=== PATIENT | female | born 1945 | race Caucasian/White ===

== ENCOUNTER 2018-04-28 05:02 | Observation (INO) | payer MEDICARE, SELFPAY ==
[2018-04-28] VITALS (8 sets, daily range): BP systolic 139–170; BP diastolic 74–92; PULSE 80–97; RESP 14–18; TEMP 36.6–36.8; O2SAT 96–100; BMI 25.5; BMI 25.1; BMI 25.2
--- NOTE | 2018-04-28 05:08 | EKG12_ITS ---
Test Reason : CP Blood Pressure : / mmHG Vent. Rate : 095 BPM Atrial Rate : 095 BPM P-R Int : 144 ms QRS Dur : 068 ms QT Int : 338 ms P-R-T Axes : 070 010 052 degrees QTc Int : 424 ms Normal sinus rhythm Normal ECG Confirmed by MALLORY HUGHES, RAKESH ([id number]), production editor LIANA BULL ([id number]) on 05/02/2018 3:16:24 PM Referred By: [place] Confirmed By:RAKESH TEJADA MD
--- NOTE | 2018-04-28 05:08 | RAD_ITS ---
STUDY: X-RAY CHEST REASON FOR EXAM: Female, 73 years old. Hypertension and tightness in chest TECHNIQUE: Single AP portable view of the chest. COMPARISON: None. FINDINGS: There are superimposed monitor leads. There is a moderate-sized hiatal hernia. There is hyperinflation of the lungs consistent with chronic obstructive lung disease (COPD). There is no demonstrated pleural abnormality. Normal size heart. Normal mediastinum and oswald. Normal visualized pulmonary arteries. There is atherosclerotic calcification of the aortic arch with tortuosity. Normal visualized thoracic spine. Normal visualized ribs, clavicles, and shoulders. There is no demonstrated abnormality of the visualized soft tissue structures of the upper abdomen. RAD/Chest 1 View (Portable) IMPRESSION: COPD. No pulmonary edema, congestive heart failure or confluent pneumonia. Other nonacute findings as outlined above. Electronically Signed: Meena Alejandro MD at 5:46 EDT , Service support ,
[2018-04-28] MEDS: Aspirin 81 MG TAB.CHEW 324 MG PO (05:14)
[2018-04-28] MEDS: 0.9% Normal Saline 1,000 ML 150 ML IV (05:14)
[2018-04-28 05:20] LABS: Absolute Lymphocyte Count 1.33 X10^3/ul (0.83-4.51); Absolute Neutrophil Count 5.2 X10^3/uL (2.0-7.7); Basophil# 0.04 X10^3/uL; Basophil% 0.6 % (0-1); Eosinophil# 0.04 X10^3/uL; Eosinophils% 0.6 % (0-5); Hematocrit 38.1 % (37-47); Hemoglobin 13.2 g/dl (12.0-15.0); Lymphocyte # 1.33 X10^3/ul (4.0); Lymphocyte % 19.2 % (19-41); Mean Corp Hgb Conc 34.6 g/gl (32-36); Mean Corpuscular Hgb 30.1 pg (27.0-32.0); Mean Platelet Vol. 8.6 fl (6.2-12.0); Monocyte# 0.34 X10^3/uL; Monocyte% 4.9 % (0-10); Neutrophil # 5.16 X10^3/uL (2.7-7.7); Neutrophil % 74.6 % (47-70); Platelet Count 348 K/mm3 (150-450); RBC Distribution Width CV 12.8 % (11.6-14.6); RBC Distribution Width SD 39.9 fl (35.1-43.9); Red Blood Count 4.38 M/mm3 (4.2-5.4); White Blood Count 6.9 K/mm3 (4.4-11.0)
--- NOTE | 2018-04-28 05:30 | ED.VISSUMM ---
- ER Visit Summary Date of Service: 04/28/18 Chief Complaint: Chest pain History of Present Illness: The patient is a [address] Eros Horta III. She reports that she was awakened from sleep at 1215 by a substernal tightness and heaviness with radiation to the right side of her jaw. She reports is 2 out of 10 severity currently and at worst. Is worsened by nothing including exertion, movement, or breathing. It is also relieved by nothing including antacids. She has been nauseated with it. No vomiting, diaphoresis, or shortness of breath. Patient has a history of high blood pressure, high cholesterol, and family history of coronary artery disease. She has never had a stress test or heart catheterization. Physical Examination: Vitals: Stable. Afebrile. General: Well-nourished and well-developed. Head: Normocephalic atraumatic. Neck: Supple, no lymphadenopathy. No JVD. Nontender. Cardiovascular: Regular rate and rhythm. No murmurs. Respiratory: No respiratory distress. Clear to auscultation bilaterally. Abdominal: Soft, nontender, nondistended, normal bowel sounds. No guarding, rebound, or peritoneal signs. Back: Nontender. Extremities: Nontender, no edema. Skin: Normal color, no rash. Neurologic: Alert and oriented ?3. Cranial nerves II through XII are intact. Normal strength and sensation. Psych: Normal affect. Test Results: EKG is sinus at [address] changes. Chest x-ray shows chronic changes. CBC is marked for segment neutrophils 75. Chem-7 is more for sodium 132, creatinine 1.22, glucose 133. Troponin is negative. Emergency Department Course and Treatment: Patient was treated with aspirin and sublingual nitroglycerin. There was no change in her pain with the nitroglycerin. Treatment Plan: Patient will be admitted for further evaluation and treatment. She will be discussed with the hospitalist. Disposition: Admitted in stable condition. Impression: 1. Chest pain. 2. VERNA score of 3. 3. Renal insufficiency. This note was generated with [employer] software. It may contain incorrect words, spelling, and punctuation that were not noted in review of the chart prior to signing ED Disposition - Plan for ED Patient: Chief Complaint: Chest Pain Referrals: Eros Horta III, MD [Primary Care Provider] -
[2018-04-28 05:36] LABS: POSITIVE COUNT NO; POSITIVE DIFFERENTIAL NO; POSITIVE MORPHOLOGY NO
[2018-04-28 05:37] LABS: Anion Gap 8 (5-15); BUN 18 mg/dL (7-18); BUN/Creat Ratio 14.8 RATIO (10-20); Calcium,Total 9.7 mg/dL (8.5-10.1); Chloride 99 mmol/L (98-107); Creatinine, Serum 1.22 mg/dL (0.55-1.02); EST Glomerular Filtration Rate 46 mL/min (>60); Est Glom Filt Rate - Afr Amer 56 mL/min (>60); Estimated Creatinine Clearance 32.48 ml/min; Glucose 133 mg/dL (74-106); Potassium 3.9 mmol/L (3.5-5.1); Sodium Level 132 mmol/L (136-145)
--- NOTE | 2018-04-28 05:38 | NURSING ---
pt does not know here fosamax dosage
--- NOTE | 2018-04-28 06:51 | EKG12_ITS ---
Test Reason : Blood Pressure : / mmHG Vent. Rate : 085 BPM Atrial Rate : 085 BPM P-R Int : 150 ms QRS Dur : 066 ms QT Int : 366 ms P-R-T Axes : 067 016 050 degrees QTc Int : 435 ms Normal sinus rhythm Normal ECG When compared with ECG of 28-APR-2018 05:10, MANUAL COMPARISON REQUIRED, DATA IS UNCONFIRMED Confirmed by MALLORY HUHGES, RAKESH ([id number]), editor continuity and script LIANA BULL ([id number]) on 05/02/2018 3:57:32 PM Referred By: BLANK Confirmed By:RAKESH TEJADA MD
--- NOTE | 2018-04-28 07:01 | HP.PCM_ITS ---
Problem List (1) Chest pain at rest Status: Acute (2) HTN (hypertension) Status: Chronic (3) Hyperlipemia Status: Acute History of Present Illness Date of Admission: 04/28/18 Chief Complaint: chest pain The patient is a 73 year old F with a significant history of hypertension, hyperlipidemia, IBS who presents with chest pain that woke up from her sleep. The night before admission patient slept at about 11:30 PM. At about 12:15 AM she woke up with pain in the right side of her head; I said of the neck and the right side of her chest. She described the pain as heaviness and tightness. Her pain severity is 2 out of 10. Patient came to the emergency department because she was fearful that she was having a brain aneurysm. Associated with symptoms is nausea and hot feelings around her cheeks. There is no ameliorating or aggravating factors of her pain. She denies diaphoresis. After she woke up from her sleep she checked her blood pressure and her blood pressure was severely elevated at 185/88. Past Medical History Past Medical History (Chronic Problems): Chronic Problems HTN (hypertension) (Chronic) Allergies erythromycin base [From Staticin] Allergy (Verified 04/28/18 05:08) Other ethyl alcohol [From Staticin] Allergy (Verified 04/28/18 05:08) Other Home Medications: Ambulatory Orders Medication Instructions Recorded Alendronate Sodium [Fosamax] mg PO DAILY 04/28/18 Amlodipine/Benazepril [Lotrel 5-20 1 capsule PO DAILY 04/28/18 MG Capsule] Aspirin E.C. [Ecotrin] 81 mg PO DAILY@0800 04/28/18 Biotin 7,500 mcg PO DAILY 04/28/18 Calcium Carbonate [Calcium] 600 mg PO BID 04/28/18 Cholecalciferol (VIT D3) [Vitamin 1,000 unit PO DAILY 04/28/18 D] Cinnamon Bark [Cinnamon] 1,000 mg PO BID 04/28/18 Folic Acid 0.4 mg PO DAILY@0800 04/28/18 Ubidecarenone [Co Q-10] 200 mg PO DAILY 04/28/18 Surgical History: - - parathyroidectomy Psychiatric History: No pertinent psych hx Smoking Status: Never smoker Alcohol: None - *Family History Maternal History Items: Heart Disease Paternal History Items: Heart Disease Review of Systems Constitutional: Denies: Chills, Fever, Weight Change HEENT: Reports: Head Aches. Denies: Sinus Congestion, Sinus Drainage Cardiovascular: Reports: Chest Pain. Denies: Palpitations Respiratory: Denies: Cough, Shortness of breath at rest, Sputum production Gastrointestinal: Reports: Nausea. Denies: Abdominal Pain, Vomiting Genitourinary: Denies: Dysuria Musculoskeletal: Denies: Joint Pain, Joint Tenderness Skin: Denies: Rash, Wounds Neurological: Denies: Numbness, Tingling, Focal weakness Psychiatric: Denies: Anxiety, Depression, Homicidal Ideations, Suicidal Ideations Hematologic/ Lymphatic: Denies: Easy Bruising, Easy Bleeding VTE Information - Inpt Only VTE Present on Admission: No VTE Mechan Device Prophylaxis: None VTE Pharm Prophylaxis ordered?: Yes Patient Problems: Active and Suspected Problems Chest pain at rest (Acute) Hyperlipemia (Acute) - Physical Exam General: Alert, Oriented x3, Cooperative HEENT: Atraumatic, PERRLA, EOMI, Normocephalic Neck: Supple, No JVD, Negative Carotid Bruits Lungs: Clear to auscultation, Normal air movement Cardiovascular: Regular rate, No murmurs Abdomen: Bowel Sounds Present, Soft, Non Tender Extremities: No edema, Capillary Refill Less than 3 Seconds Skin: No rashes, No breakdown Musculoskeletal: No Tenderness to Palpation of Joints or Extremities Neurological: Cranial nerves II-XII grossly intact Psych/Mental Status: Normal Affect, Appropriate Vital Signs Temp Pulse Resp BP Pulse Ox 97.8 F 82 16 155/75 H 98 04/28/18 06:55 04/28/18 06:55 04/28/18 06:55 04/28/18 06:55 04/28/18 06:55 Oxygen Delivery Method Room Air Weight: 63.4 kg Body Mass Index (BMI) 25.5 Laboratory Tests Past 24 Hrs 04/28/18 04/28/18 05:10 05:10 WBC 6.9 RBC 4.38 Hgb 13.2 Hct 38.1 MCV 87.0 MCH 30.1 MCHC 34.6 RDW 12.8 RDW Differential 39.9 Plt Count 348 MPV 8.6 Immature Gran % (Auto) 0.100 Neut % (Auto) 74.6 H Lymph % (Auto) 19.2 Morehouse % (Auto) 4.9 Eos % (Auto) 0.6 Baso % (Auto) 0.6 Absolute Neuts (auto) 5.2 Absolute Lymphs (auto) 1.33 Total Counted Not Reportable Sodium 132 L Potassium 3.9 Chloride 99 Carbon Dioxide 25.0 Anion Gap 8 BUN 18 Creatinine 1.22 H Estim Creat Clear Calc 32.48 Est GFR (MDRD) Af Amer 56 L Est GFR (MDRD) Non-Af 46 L BUN/Creatinine Ratio 14.8 Glucose 133 H Calcium 9.7 Troponin I < 0.015 Assessment/Plan All Active Problems Chest pain at rest (Acute) Hyperlipemia (Acute) The patient is a 73 year old F with a significant history of hypertension, hyperlipidemia, IBS; and significant family history of heart disease presenting with right-sided head to chest pain. Chest pain Admit to a monitored bed on PCU CXR independently reviewed confirms no acute pathology but with hyperinflated lungs; and calcification of aortic arch. EKG showed nonspecific ST changes. Received aspirin 324 the emergency department ASA 81 mg p.o. daily Patient reports a baseline leg pain that increases excessively with statins. Patient takes Cholestoff, over the counter medication at home. Fasting lipids ordered. Statins not started at this time. SL NTG 0.4 mg prn as needed for chest pain Serial cardiac enzymes Stat EKG as needed for chest pain Stress test in the AM if the cardiac enzymes are negative Hyponatremia Mild and asymptomatic Kidney injury Creatinine mildly elevated at 1.22. Unclear whether this is chronic or acute Gentle IV hydration. Avoid nephrotoxic Hypertension Blood pressure fairly uncontrolled at the time of admission. Home amlodipine and lisinopril continued. Kidney injury is mild and likely chronic. Catapres as needed for systolic blood pressure more than 160. Avoid Beta- juventino in the setting of patient scheduled for a stress test. DVT prophylaxis Subcutaneous heparin ordered. Code Visit OBSV E&M: 89136 Initial observation care L3
[2018-04-28] MEDS: 0.9% Normal Saline 1,000 ML 75 ML IV (08:08)
[2018-04-28 09:10] LABS: Cholesterol 219 mg/dL (200); High Density Lipoprotein 69 mg/dL; Triglycerides 87 mg/dL; Very Low Density Lipoprotein 17 mg/dL (5-40)
[2018-04-28] MEDS: Lisinopril 20 MG Tablet PO (12:52)
[2018-04-28] MEDS: Aspirin E.C. 81 MG Tablet PO (12:52)
[2018-04-28] MEDS: amLODIPine 5 MG Tablet PO (12:52)
--- NOTE | 2018-04-28 12:56 | DCINST_ITS ---
- Discharge Diagnoses Current Active Problems: Current Active and Chronic Problems Chest pain at rest (Acute) HTN (hypertension) (Chronic) Hyperlipemia (Acute) You will use the following diet at home:: Cardiac Your food should be the consistency of: Regular Your liquids should be the consistency of: Regular/Thin Discharge Activity: Return to Normal Activity Allergies/Adverse Reactions: Allergies erythromycin base [From Staticin] Allergy (Verified 04/28/18 05:08) Other ethyl alcohol [From Staticin] Allergy (Verified 04/28/18 05:08) Other Medications to take at Discharge Alendronate Sodium [Fosamax] 70 mg PO QWEEK 04/28/18 Amlodipine/Benazepril [Lotrel 5-20 MG Capsule] 1 capsule PO DAILY 04/28/18 Ascorbic Acid [Vitamin C] 500 mg PO DAILY 04/28/18 Aspirin E.C. [Ecotrin] 81 mg PO DAILY@0800 04/28/18 Atorvastatin Calcium 40 mg PO DAILY #30 tab 04/28/18 Biotin 7,500 mcg PO DAILY 04/28/18 Calcium Carbonate [Calcium] 600 mg PO BID 04/28/18 Cholecalciferol (VIT D3) [Vitamin D3] 1,000 unit PO DAILY 04/28/18 Cinnamon Bark [Cinnamon] 1,000 mg PO DAILY 04/28/18 Folic Acid 0.4 mg PO DAILY@0800 04/28/18 Plant Stanol Gabby [Cholest Off Plus] 450 mg PO DAILY 04/28/18 Ubidecarenone [Co Q-10] 200 mg PO DAILY 04/28/18 The following prescriptions were given: Atorvastatin Calcium 40 mg PO DAILY #30 tab Primary Care Physician: Eros Horta III, MD [Primary Care Provider] - Please follow up with your Primary Care Physician in: 1-2 weeks Test Results: Test results from this visit will be discussed in further detail at your follow- up appointment, if applicable. Please Follow Up With: Mika Zuñiga MD When: 1-2 weeks Proposed Discharge Date: 04/28/18
--- NOTE | 2018-04-28 15:05 | PCM.DC.SUM ---
<Bunny Washington - Last Filed: 04/28/18 15:05> Discharge Date and Diagnosis Date of Admission: 04/28/18 Date of Discharge: 04/28/18 - Primary Discharge Diagnosis Right neck, shoulder, head pain-suspect musculoskeletal Mild hyponatremia Hypertension Hyperlipidemia Suspect CKD stage III - Secondary Discharge Diagnosis Chronic Problems HTN (hypertension) (Chronic) Hospital Course and Treatment Imaging Results: RAD/Chest 1 View (Portable) IMPRESSION: COPD. No pulmonary edema, congestive heart failure or confluent pneumonia. Other nonacute findings as outlined above. Operations: None Procedures: None Summary of Care Provided: Physical exam on day of discharge: General: Resting comfortably NAD Psych: A/Ox3 normal affect HEENT: PEARRLA AT NC Neck: Supple NT, pain reproducible with palp over the trap. CV: RRR no m/t/r/g/h Resp: CTA Abd: [id number] Soft NT no guarding or rigidity Ext: DP2+= no edema Skin: W/D normal turgor Lymph/Heme: No active bleeding or adenopathy Neuro: CN2-12 intact Hospital course: The patient is a 73 year old F with a history of hypertension who presented to the emergency room with complaints of right-sided shoulder, neck, and head pain. There is a concern in the ER that she might have chest pain and it was documented that she had midsternal chest pain, however later the patient denied ever having any chest pain. She had a negative EKG, negative troponin, negative chest x-ray. She was admitted to the PCU and placed on telemetry for chest pain workup. When seen later that day she continued to complain of 0 chest pain and only complained of the above issues with the emphasis being on the right sided neck pain. Her symptoms were recent producible with palpation of the trapezius. She also expressed concern that she might have a tension headache as she has a history of these for which she is treated with chiropractic therapy. and would be c/w her symptoms. Her troponin remained negative x3, repeat EKGs were negative, and she had no events on telemetry. Stress test was unable to be obtained today. Discussed with the patient that these symptoms were not likely cardiac in etiology. I discussed the case with Dr. Zuñiga who agreed, and did not feel that she needed a stress test at this time. He was agreeable to seeing her in the office, and she was agreeable to this as her had seen him in the past. I recommended that she try a dose of ibuprofen to see if it helps her neck pain and headache. Her lipid panel was checked demonstrating total cholesterol elevation, and LDL elevation. Her ASCVD score was 22% so she was started on Lipitor 40 mg daily at discharge. Otherwise her medications remained unchanged. She was discharged home in stable condition will need to follow-up with cardiology as above and with her PCP in 1-2 weeks. This patient was seen by Bunny Washington PA-C under the supervision of Doctor Karla. [] Discharge Diet: Low fat/ Low Cholesterol, 2000 mg Sodium Diet Discharge Activity: Return to Normal Activity Home Medications: Medications to take at Discharge Alendronate Sodium [Fosamax] 70 mg PO QWEEK 04/28/18 Amlodipine/Benazepril [Lotrel 5-20 MG Capsule] 1 capsule PO DAILY 04/28/18 Ascorbic Acid [Vitamin C] 500 mg PO DAILY 04/28/18 Aspirin E.C. [Ecotrin] 81 mg PO DAILY@0800 04/28/18 Atorvastatin Calcium 40 mg PO DAILY #30 tab 04/28/18 Biotin 7,500 mcg PO DAILY 04/28/18 Calcium Carbonate [Calcium] 600 mg PO BID 04/28/18 Cholecalciferol (VIT D3) [Vitamin D3] 1,000 unit PO DAILY 04/28/18 Cinnamon Bark [Cinnamon] 1,000 mg PO DAILY 04/28/18 Folic Acid 0.4 mg PO DAILY@0800 04/28/18 Plant Stanol Gabby [Cholest Off Plus] 450 mg PO DAILY 04/28/18 Ubidecarenone [Co Q-10] 200 mg PO DAILY 04/28/18 Following Prescrptions Were Given to Patient: Atorvastatin Calcium 40 mg PO DAILY #30 tab Primary Care Physician: Eros Horta III, MD [Primary Care Provider] - Please follow up with your Primary Care Physician in: 1-2 weeks Please Follow Up With: Mika Zuñiga MD When: 1-2 weeks Disposition: Home Minutes spent on discharge:: 35 Patient Condition:: Stable Medical Necessity - Tobacco Use Smoking Status: Never smoker Meaningful Use Info Meaningful Use Diagnoses (Choose all that apply): None applicable <Miguel Acosta - Last Filed: 04/28/18 16:26> Discharge Date and Diagnosis - Secondary Discharge Diagnosis Chronic Problems HTN (hypertension) (Chronic) Hospital Course and Treatment Summary of Care Provided: The patient is a 73 year old F [] Code Visit Addendum: Dr. Acosta I personally examined the patient and reviewed the chart. I agree with the above. Arlene Metzger is a 73-year-old female who presented to the ER with right shoulder and neck pain. She has a history of hypertension as well and so there is a concern that she may have also had chest pain so she was admitted for chest pain rule out. Had 3- troponins and normal EKGs. Denying today that she ever had chest pain and all of the pain was in her shoulder and in her neck. She had been ordered a stress test today however that was not can be able to be done until tomorrow and she did not want to have to stay for that. We discussed with her that NSAIDs might be helpful in controlling her pain and that she can see cardiology as an outpatient. We did do her ASCVD score which was 22% so she was started on Lipitor 40 mg daily at discharge. OBSV E&M: 57360 Observation care discharge
== END 2018-04-28 12:55 | disposition home or self-care (01) ==
LOC: ED 06:05 → PCU 06:16
PROVIDERS: Admitting Provider Hospitalist; Emergency Provider Emergency Medicine; PCP Family Medicine; Visit Provider Family Medicine
DX: R07.89 Other chest pain (principal); Z23 Encounter for immunization; I10 Essential (primary) hypertension; E78.5 Hyperlipidemia, unspecified; K58.9 Irritable bowel syndrome, unspecified; I70.0 Atherosclerosis of aorta; E87.1 Hypo-osmolality and hyponatremia; K21.9 Gastro-esophageal reflux disease without esophagitis; M19.90 Unspecified osteoarthritis, unspecified site; Z82.49 Family history of ischemic heart disease and other diseases of the circulatory system; Z79.899 Other long term (current) drug therapy; Z79.82 Long term (current) use of aspirin
CPT/HCPCS: 71045; 80048; 80061; 84484; 85025; 93005; 96360; 96361; 97165; 99218; 99283; G0008; J7030; 90686; A4216; G0378

== ENCOUNTER → 2018-05-25 06:38 | Outpatient (CLI) | payer MEDICARE, SELFPAY ==
--- NOTE | 2018-05-25 06:43 | ECHOD_ITS ---
Reason For Study: CHEST PAIN Procedure This was a 2D Doppler, Color Flow transthoracic echocardiogram. Exam performed in department. Left Ventricle Normal LV size. Left ventricular systolic function is normal. The estimated ejection fraction is 65 %. Transmitral and pulmonary venous doppler flow suggestive of impaired relaxation of left ventricle. No regional wall motion abnormalities noted. Right Ventricle Normal RV size. Normal systolic function. Atria Normal left atrium. Normal right atrium. Bubble contrast study negative for right to left interatrial shunt. Mitral Valve Normal mitral valve. Trivial eccentric mitral valve insufficiency. Tricuspid Valve Normal tricuspid valve. Mild (1+) tricuspid valve insufficiency. Pulmonary artery systolic pressure is 28 mmHg. Aortic Valve Normal aortic valve. Trisinus/trileaflet aortic valve. Pulmonic Valve Normal pulmonic valve. Great Vessels Normal aortic root. The pulmonary artery is normal size. Normal inferior vena cava. Inferior vena cava collapse with sniff. Pericardium/Pleural No pericardial effusion. Medication Performed a rapid injection of agitated mix of 9 cc saline and 1cc air to assess for atrial septal defect. MMode/2D Measurements & Calculations LVIDd: 3.6 cm IVSd: 0.72 cm Ao root diam: 2.8 cm LVIDs: 2.5 cm LVPWd: 0.84 cm LA dimension: 3.4 cm RVDd: 2.7 cm FS: 31.6 % LAV(MOD-bp): 35.4 ml LVAd ap4: 23.4 cm2 SV(MOD-sp4): 39.0 ml LAV(MOD-bp) Indexed: 21.8 ml/m2 EDV(MOD-sp4): 60.8 ml LAV(MOD-sp2): 33.1 ml EDV(sp4-el): 64.7 ml LAV(MOD-sp4): 36.5 ml LVAs ap4: 12.2 cm2 ESV(MOD-sp4): 21.8 ml ESV(sp4-el): 22.1 ml EF(MOD-sp4): 64.2 % EF(sp4-el): 65.9 % SV(sp4-el): 42.7 ml LA A4 area: 14.6 cm2 LA dimension(2D): 3.4 cm RA A4 area: 11.3 cm2 Time Measurements MV dec time: 0.23 sec Doppler Measurements & Calculations MV E max han: 56.7 cm/sec Lat Peak E' Han: 11.5 cm/sec Med Peak E' Han: 6.5 cm/sec MV A max han: 81.5 cm/sec E/E' lat: 4.9 E/E' med: 8.7 MV E/A: 0.70 Ao V2 max: 122.1 cm/sec LV V1 max: 109.1 cm/sec PA V2 max: 122.6 cm/sec Ao max P.0 mmHg LV V1 max P.8 mmHg TR max han: 257.4 cm/sec TR max P.6 mmHg Interpretation Summary Normal LV size. Left ventricular systolic function is normal. The estimated ejection fraction is 65 %. Transmitral and pulmonary venous doppler flow suggestive of impaired relaxation of left ventricle Mild (1+) tricuspid valve insufficiency. Ordering Physician: Mika Zuñiga Referring Physician: Mika Zuñiga Performed By: Malia Serrato RDCS
--- NOTE | 2018-05-25 12:52 | STRESSREP ---
Stress Test Report Exercise myocardial perfusion stress test. 73-year-old lady with a history of chest pain. Stress protocol: Resting EKG demonstrates normal sinus rhythm with a rate of 70 bpm normal intervals and noted resting blood pressure 140/80 mmHg. The patient exercised according to regular Pablo protocol for total duration of 4 minutes and 15 seconds. The maximum heart rate attained was 155 bpm which was 105% of maximum predicted heart rate the maximum workload was 6.1 metabolic equivalents. The patient maintained sinus rhythm throughout the recording. At rest there were no ST or T wave changes noted suggest ischemia at peak exercise upsloping ST changes were noted less than 1 mm with no meet the criteria for ischemia. The resting blood pressure was 140/80 mmHg with a peak blood pressure 152/86 mmHg. No clinical angina was noted the test was terminated due to dyspnea. Myocardial perfusion protocol. 11.3 mCi of technetium 99m sestamibi was injected at rest. The patient exercised according to regular Pablo protocol for 4 minutes and 15 seconds. The maximum heart rate was 155 bpm at peak exercise 35.7 mCi of technetium 99m sestamibi was injected stress images were obtained stress and rest images were reconstructed and compared in the short axis vertical long horizontal long axis. Gated images were also obtained per Perfusion SPECT analysis: Review of the stress images demonstrate normal uptake of tracer noted in all areas of the myocardium the resting images similarly demonstrate normal uptake of tracer noted in all areas of myocardium. No areas of reversibility are noted suggest ischemia. Gated SPECT analysis: The gated ejection fraction is noted to be 83%. Conclusion: Normal exercise myocardial perfusion stress test at a low to moderate workload. Preserved ejection fraction.
--- NOTE | 2018-05-25 12:55 | STRESSREP_ITS ---
Stress Test Report Exercise myocardial perfusion stress test. 73-year-old lady with a history of chest pain. Stress protocol: Resting EKG demonstrates normal sinus rhythm with a rate of 70 bpm normal intervals and noted resting blood pressure 140/80 mmHg. The patient exercised according to regular Pablo protocol for total duration of 4 minutes and 15 sec onds. The maximum heart rate attained was 155 bpm which was 105% of maximum predicted heart rate the maximum workload was 6.1 metabolic equivalents. The patient maintained sinus rhythm throughout the recording. At rest there were no ST or T wave changes noted suggest ischemia at peak exercise upsloping ST changes were noted less than 1 mm with no meet the criteria for ischemia. The resting blood pressure was 140/80 mmHg with a peak blood pressure 152/86 mmHg. No clinical angina was noted the test was terminated due to dyspnea. Myocardial perfusion protocol. 11.3 mCi of technetium 99m sestamibi was injected at rest. The patient exercised according to regular Pablo protocol for 4 minutes and 15 seconds. The maximum heart rate was 155 bpm at peak exercise 35.7 mCi of technetium 99m se stamibi was injected stress images were obtained stress and rest images were reconstructed and compared in the short axis vertical long horizontal long axis. Gated images were also obtained per Perfusion SPECT analysis: Review of the stress images demonstrate normal uptake of tracer noted in all areas of the myocardium the resting images similarly demonstrate normal uptake of tracer noted in all areas of myocardium. No areas of reversibility are noted suggest ischemia. Gated SPECT analysis: The gated ejection fraction is noted to be 83%. Conclusion: Normal exercise myocardial perfusion stress test at a low to moderate workload. Preserved ejection fraction.
== END ==
PROVIDERS: PCP Family Medicine; Referring Provider Internal Medicine Cardiovascular Disease; Visit Provider Internal Medicine Cardiovascular Disease
DX: R07.9 Chest pain, unspecified (principal)
CPT/HCPCS: 78452; 93017; 93306; A9500; A4216

== ENCOUNTER 2021-10-27 08:56 | Outpatient (CLI) | payer MEDICARE, SELFPAY ==
[2021-10-27 12:06] LABS: Absolute Lymphocyte Count 1.63 X10^3/uL (0.83-4.51); Absolute Neutrophil Count 1.9 X10^3/uL (2.0-7.7); Basophil# 0.03 X10^3/uL; Basophil% 0.7 % (0-1); Eosinophil# 0.05 X10^3/uL; Eosinophils% 1.2 % (0-5); Hematocrit 40.3 % (37-47); Hemoglobin 13.4 g/dL (12.0-15.0); Lymphocyte # 1.63 X10^3/ul (0.83-4.51); Lymphocyte % 40.5 % (19-41); Mean Corp Hgb Conc 33.3 g/dL (32-36); Mean Corpuscular Hgb 30.1 pg (27.0-32.0); Mean Corpuscular Volume 90.6 fL (81-99); Mean Platelet Vol. 9.3 fl (6.2-12.0); Monocyte# 0.37 X10^3/uL; Monocyte% 9.2 % (0-10); NRBC Flagged by Analyzer 0 % (0-5); Neutrophil # 1.92 X10^3/uL (2.7-7.7); Neutrophil % 47.9 % (47-70); Platelet Count 328 K/mm3 (150-450); RBC Distribution Width CV 12.6 % (11.6-14.6); RBC Distribution Width SD 41.8 fl (35.1-43.9); Red Blood Count 4.45 M/mm3 (4.2-5.4)
[2021-10-27 12:20] LABS: Vitamin D,25 Hydroxy 64.2 ng/mL
[2021-10-27 12:22] LABS: ALB/GLOB Ratio 0.9 RATIO (0.9-2.4); AST(SGOT) 21 U/L (15-37); Alanine Aminotransfer ALT/SGPT 31 U/L (13-56); Albumin, Serum 3.6 g/dL (3.2-5.0); Alkaline Phosphatase 50 U/L (45-117); Anion Gap 5 (5-15); BUN 11 mg/dL (7-18); BUN/Creat Ratio 9.6 RATIO (10-20); Calcium,Total 9.5 mg/dL (8.5-10.1); Chloride 101 mmol/L (98-107); Cholesterol 169 mg/dL (200); Creatinine, Serum 1.14 mg/dL (0.55-1.02); EST Glomerular Filtration Rate 49 mL/min (>60); Est Glom Filt Rate - Afr Amer 60 mL/min (>60); Globulin 3.8 g/dL (2.2-4.2); Glucose 91 mg/dL (74-106); High Density Lipoprotein 95 mg/dL; Potassium 4.7 mmol/L (3.5-5.1); Protein, Total 7.4 g/dL (6.4-8.2); Sodium Level 135 mmol/L (136-145); Triglycerides 59 mg/dL; Very Low Density Lipoprotein 12 mg/dL (5-40)
== END 2021-10-27 23:59 | disposition home or self-care (01) ==
PROVIDERS: PCP Internal Medicine; Referring Provider Internal Medicine; Visit Provider Internal Medicine
DX: E78.00 Pure hypercholesterolemia, unspecified (principal); I10 Essential (primary) hypertension; M48.061 Spinal stenosis, lumbar region without neurogenic claudication; M79.604 Pain in right leg; M79.605 Pain in left leg; E78.5 Hyperlipidemia, unspecified; E55.9 Vitamin D deficiency, unspecified
CPT/HCPCS: 36415; 80053; 80061; 82306; 85025

== ENCOUNTER → 2022-03-09 | Outpatient (CLI) | payer MEDICARE, SELFPAY ==
[2022-03-09 15:11] LABS: Absolute Neutrophil Count 4.4 X10^3/uL (2.0-7.7); Basophil# 0.03 X10^3/uL; Basophil% 0.5 % (0-1); Eosinophil# 0.05 X10^3/uL; Eosinophils% 0.8 % (0-5); Hematocrit 38.2 % (37-47); Hemoglobin 12.9 g/dL (12.0-15.0); Lymphocyte % 24.3 % (19-41); Mean Corp Hgb Conc 33.8 g/dL (32-36); Mean Corpuscular Hgb 30.9 pg (27.0-32.0); Mean Corpuscular Volume 91.4 fL (81-99); Mean Platelet Vol. 9.5 fl (6.2-12.0); Monocyte# 0.53 X10^3/uL; NRBC Flagged by Analyzer 0 % (0-5); Neutrophil # 4.37 X10^3/uL (2.7-7.7); Neutrophil % 66.2 % (47-70); Platelet Count 289 K/mm3 (150-450); RBC Distribution Width CV 13.1 % (11.6-14.6); RBC Distribution Width SD 43.8 fl (35.1-43.9); Red Blood Count 4.18 M/mm3 (4.2-5.4); White Blood Count 6.6 K/mm3 (4.4-11.0)
[2022-03-10 00:09] LABS: Vitamin B12 669 pg/mL (211-911)
[2022-03-10 00:17] LABS: AST(SGOT) 22 U/L (15-37); Alanine Aminotransfer ALT/SGPT 29 U/L (13-56); Albumin, Serum 3.6 g/dL (3.2-5.0); Alkaline Phosphatase 48 U/L (45-117); Anion Gap 4 (5-15); BUN 13 mg/dL (7-18); BUN/Creat Ratio 11.6 RATIO (10-20); Calcium,Total 9.9 mg/dL (8.5-10.1); Chloride 101 mmol/L (98-107); Creatinine, Serum 1.12 mg/dL (0.55-1.02); EST Glomerular Filtration Rate 50 mL/min (>60); Est Glom Filt Rate - Afr Amer 61 mL/min (>60); Globulin 3.6 g/dL (2.2-4.2); Glucose 98 mg/dL (74-106); Magnesium 2.1 mg/dL (1.6-2.6); Protein, Total 7.2 g/dL (6.4-8.2); Sodium Level 135 mmol/L (136-145)
[2022-03-10 00:55] LABS: Folates, (Folic Acid) > 100.00 ng/mL (3.1-55.4)
== END | disposition home or self-care (01) ==
LOC: BIMLAB 13:39
PROVIDERS: PCP Internal Medicine; Referring Provider Physician Assistant; Visit Provider Physician Assistant
DX: E78.5 Hyperlipidemia, unspecified (principal); M79.604 Pain in right leg; M79.605 Pain in left leg; G62.9 Polyneuropathy, unspecified; I10 Essential (primary) hypertension
CPT/HCPCS: 36415; 80053; 82607; 82746; 83735; 85025

== ENCOUNTER → 2022-04-20 | Outpatient (CLI) | payer MEDICARE, SELFPAY ==
[2022-04-20 15:29] LABS: Absolute Lymphocyte Count 1.53 X10^3/uL (0.83-4.51); Absolute Neutrophil Count 3.6 X10^3/uL (2.0-7.7); Basophil# 0.06 X10^3/uL; Eosinophil# 0.08 X10^3/uL; Eosinophils% 1.4 % (0-5); Hematocrit 38.9 % (37-47); Hemoglobin 13.1 g/dL (12.0-15.0); Lymphocyte # 1.53 X10^3/ul (0.83-4.51); Lymphocyte % 26.4 % (19-41); Mean Corp Hgb Conc 33.7 g/dL (32-36); Mean Corpuscular Hgb 30.8 pg (27.0-32.0); Mean Corpuscular Volume 91.3 fL (81-99); Mean Platelet Vol. 9.5 fl (6.2-12.0); Monocyte# 0.49 X10^3/uL; Monocyte% 8.5 % (0-10); NRBC Flagged by Analyzer 0 % (0-5); Neutrophil # 3.61 X10^3/uL (2.7-7.7); Neutrophil % 62.4 % (47-70); Platelet Count 307 K/mm3 (150-450); RBC Distribution Width CV 13.1 % (11.6-14.6); RBC Distribution Width SD 43.8 fl (35.1-43.9); Red Blood Count 4.26 M/mm3 (4.2-5.4); White Blood Count 5.8 K/mm3 (4.4-11.0)
[2022-04-20 15:46] LABS: Vitamin B12 606 pg/mL (211-911)
== END | disposition home or self-care (01) ==
LOC: BIMLAB 04-23 08:25
PROVIDERS: PCP Internal Medicine; Visit Provider Physician Assistant
DX: M79.604 Pain in right leg (principal); M79.605 Pain in left leg; E53.8 Deficiency of other specified B group vitamins
CPT/HCPCS: 36415; 82607; 82746; 85025

== ENCOUNTER → 2022-06-01 | Outpatient (CLI) | payer MEDICARE, SELFPAY ==
--- NOTE | 2022-06-01 10:25 | BI_ITS ---
MAMMOGRAPHY - BILATERAL SCREENING REASON FOR EXAM: Female, 77 years old. Routine annual screening examination. PERTINENT HISTORY: Non-contributory. TECHNIQUE: Digital bilateral breast dutch (3D mammographic acquisition) in the CC and MLO projections. 2-D mediolateral oblique (MLO) and craniocaudad (CC) views of both breasts were obtained. CAD: Full Field Digital Mammography with Computer Added Detection was performed. COMPARISON: Comparison is made with prior outside examination dated 11/05/2020. FINDINGS: Breast Composition: There are scattered areas of fibroglandular density. There are no dominant masses or suspicious calcifications. No other significant abnormalities are identified. There has been no significant change since the prior study. BI/SCRN MAMM (CAD)W/DUTCH BILAT IMPRESSION: Stable bilateral screening mammogram. Yearly follow-up mammogram recommended. (A) ASSESSMENT CATEGORY: BIRADS Category 1: Negative. A letter regarding these results will be sent to the patient by the facility within 30 days. Approximately 10% of breast cancers are not detected by mammography. A normal mammogram should not delay biopsy of a clinically suspicious abnormality. [id number] Electronically Signed: Garry Ghosh MD at 11:14 EST ,
== END | disposition home or self-care (01) ==
LOC: OPBI 10:24
PROVIDERS: PCP Internal Medicine; Visit Provider Internal Medicine
DX: Z12.31 Encounter for screening mammogram for malignant neoplasm of breast (principal)
CPT/HCPCS: 77063; 77067

== ENCOUNTER → 2022-08-05 | Outpatient (CLI) | payer MEDICARE, SELFPAY | END | disposition home or self-care (01) | LOC: LABSPEC 14:14 | PROVIDERS: PCP Internal Medicine; Referring Provider Physician Assistant; Visit Provider Physician Assistant | DX: J02.9 Acute pharyngitis, unspecified (principal) | CPT/HCPCS: 87070 ==

== ENCOUNTER 2022-08-14 22:53 | Emergency (ER) | payer MEDICARE, SELFPAY ==
[2022-08-14 22:56] VITALS: BP 175/81; PULSE 106; RESP 16; RESP 18; TEMP 36.3; O2SAT 97; BMI 26.8
--- NOTE | 2022-08-14 23:23 | EKG12_ITS ---
Test Reason : GENERAL ILLNESS Blood Pressure : / mmHG Vent. Rate : 086 BPM Atrial Rate : 086 BPM P-R Int : 140 ms QRS Dur : 070 ms QT Int : 344 ms P-R-T Axes : 062 011 050 degrees QTc Int : 411 ms Normal sinus rhythm Nonspecific ST abnormality Abnormal ECG Confirmed by MALLORY HUGHES, RAKESH ([id number]), assignment editor YORDY FAITH ([id number]) on 08/17/2022 10:27:25 AM Referred By: TALI Confirmed By:RAKESH TEJADA MD
--- NOTE | 2022-08-14 23:25 | EX.ED.DYSGE1 ---
HPI History of Present Illness Chief Complaint: General Illness Informant: patient Onset/Context/Timing Onset: Weeks Context: Gradual Onset Timing: Waxes and wanes Narrative Narrative: Patient presents with 3 weeks of symptoms. She states she woke up on Day, sat on the edge of the bed, and felt like everything was spinning and she was dizzy. The spinning lasted only that 1 day. Since then she is been complaining of a pressure and prickly sensation to her face and around the right side of her neck. She has had nausea with intermittent vomiting. She will have occasional loose bowels that she attributes to her IBS. She was seen by her primary care physician on the and told that she likely had a viral infection. She went back to see the physician yesterday and he placed her on antibiotics for possible sinus infection. She states she was told if she is not better by next Wednesday she is to call him. Tonight she reports feeling some intermittent paresthesias to both arms and legs so she presented to the emergency room. She denies fever. No significant cough or URI symptoms. [facility] Medical History Essential (primary) hypertension Hyperlipemia IBS (irritable bowel syndrome) Lumbar stenosis Home Medications ascorbic acid (vitamin C) 500 mg capsule 500 mg PO DAILY GENERAL HEALTH 04/28/18 [History Last Taken 04/27/18] biotin 5,000 mcg disintegrating tablet 7,500 mcg PO DAILY HAIR AND NAILS 04/28/18 [History Last Taken 04/27/18] calcium carbonate 600 mg calcium (1,500 mg) tablet 600 mg PO BID BONE HEALTH 04/28/18 [History Last Taken 04/27/18 09:30] cinnamon bark 500 mg capsule 1,000 mg PO DAILY GENERAL HEALTH 04/28/18 [History Last Taken 04/27/18] coenzyme Q10 200 mg capsule 200 mg PO DAILY GENERAL HEALTH 04/28/18 [History Last Taken 04/27/18] multivitamin (Daily Multi-Vitamin tablet) 1 tab PO DAILY 09/10/21 [History Last Taken Unknown] omega 7-hou-wbm-fish oil 300 mg-1,000 mg capsule (Fish Oil) 1 cap PO BID 09/10/21 [History Last Taken Unknown] tumeric PO DAILY 09/10/21 [History Last Taken Unknown] amlodipine 5 mg-benazepril 20 mg capsule 1 cap PO DAILY #90 caps 03/09/22 [Rx Last Taken Unknown] atorvastatin 40 mg tablet 40 mg PO DAILY #90 tabs 03/09/22 [Rx Last Taken Unknown] cetirizine 10 mg tablet 10 mg PO DAILY PRN 03/09/22 [History Last Taken Unknown] cholecalciferol (vitamin D3) 25 mcg (1,000 unit) tablet 1,000 unit PO BID GENERAL HEALTH 03/09/22 [History Last Taken Unknown] cefuroxime axetil 500 mg tablet 500 mg PO BID #14 tabs 08/13/22 [Rx Last Taken Unknown] fluticasone propionate 50 mcg/actuation nasal spray,suspension 1 spray intranasal DAILY #16 grams 08/13/22 [Rx Last Taken Unknown] amlodipine 5 mg-benazepril 20 mg capsule (Lotrel) 1 cap PO DAILY 08/14/22 [History Last Taken Unknown] famotidine 20 mg tablet 20 mg PO DAILY 08/14/22 [History Last Taken Unknown] meclizine 25 mg tablet 25 mg PO BID PRN dizziness #10 tabs 08/15/22 [Rx Last Taken Unknown] ondansetron 4 mg disintegrating tablet 4 mg PO Q8H PRN nausea and vomiting #10 tabs 08/15/22 [Rx Last Taken Unknown] Allergy/AdvReac Type Severity Reaction Status Date / Time erythromycin base Allergy Other Verified 08/13/22 13:34 [From Staticin] ethyl alcohol [From Staticin] Allergy Other Verified 08/13/22 13:34 codeine AdvReac Mild Vomiting Verified 08/13/22 13:34 Family History Mother Heart disease Father Heart disease Other Hypertension Surgical History History of parathyroidectomy Social History Smoking Status: Never smoker alcohol intake: never substance use type: does not use ROS ROS ED Constitutional Constitutional ED: Reports chills; Denies fever(s) Eyes Eyes: Denies change in vision or discharge from eye(s) ENT ENT ED: Reports other Details: Facial pressure and paresthesias ; Denies discharge from eye(s), rhinorrhea or sore throat Cardiovascular Cardiovascular: Denies chest pain or palpitations Respiratory/Chest Respiratory/Chest: Denies cough or dyspnea Gastrointestinal Gastrointestinal: Reports diarrhea and nausea; Denies abdominal pain or vomiting Genitourinary Genitourinary ED: Denies difficulty urinating or dysuria Musculoskeletal Musculoskeletal: Denies back pain or extremity pain Integumentary Denies Abrasions or rash Neurologic Neurologic: Reports paresthesias; Denies headache(s) or weakness Psychiatric Psychiatric: Denies anxiety or depression Allergic/Immunologic Allergic/Immunologic ED: Denies lip swelling or urticaria EXAM Physical Exam Const Vital Signs: 08/14/22 22:56 08/14/22 22:56 08/14/22 23:40 Temperature 97.4 F L 97.4 F L Temperature Source Temporal Temporal Pulse Rate 106 H 106 H Respiratory Rate 18 16 Respiratory Effort Normal Blood Pressure 175/81 H 175/81 H Blood Pressure Mean 112 112 Pulse Ox 97 97 Oxygen Delivery Method Room Air Room Air 08/15/22 00:33 Temperature Temperature Source Pulse Rate 89 Respiratory Rate 16 Respiratory Effort Blood Pressure 155/88 H Blood Pressure Mean 110 Pulse Ox 97 Oxygen Delivery Method Room Air Positive well nourished and well developed General Appearance ED: well developed HEENT Reports moist mucous membranes Eyes PERRL and EOMs intact bilaterally Neck no lymphadenopathy Chest Wall inspection of chest normal and palpation of chest normal Resp normal respiratory effort and clear to auscultation bilaterally Cardio regular rate and regular rhythm GI non-tender Auscultation: hypoactive bowel sounds Palpation: soft Extremity normal to inspection Neuro oriented x3 and no sensory deficits noted Motor Exam: strength 5/5 throughout Psych Mood & Affect: anxious Skin no rashes or lesions noted MDM MDM MDM Narrative Medical decision making narrative: Patient placed on laboratory monitor. EKG obtained. Head CT ordered given her vertigo symptoms with facial paresthesias. Lab work obtained along with urinalysis. IV fluids ordered. Lab Data Attestation: I reviewed the patient's lab results. Labs: Laboratory Results - last 24 hr 08/14/22 08/14/22 08/14/22 23:40 23:40 23:45 WBC 6.9 RBC 4.17 L Hgb 12.5 Hct 36.9 L MCV 88.5 MCH 30.0 MCHC 33.9 RDW Std Deviation 41.1 RDW Coeff of Cira 12.7 Plt Count 310 MPV 8.4 Immature Gran % (Auto) 0.300 Neut % (Auto) 74.6 H Lymph % (Auto) 18.6 L Lynn % (Auto) 5.9 Eos % (Auto) 0.3 Baso % (Auto) 0.3 Absolute Neuts (auto) 5.2 Absolute Lymphs (auto) 1.29 Nucleated RBC % 0 Sodium 130 L Potassium 4.1 Chloride 96 L Carbon Dioxide 26.0 Anion Gap 8 BUN 14 Creatinine 1.04 H Estim Creat Clear Calc 34.18 Est GFR (MDRD) Af Amer 66 Est GFR (MDRD) Non-Af 55 L BUN/Creatinine Ratio 13.5 Glucose 133 H Calcium 9.4 Urine Color Straw Urine Clarity Clear Urine pH 7.0 Ur Specific Blanchard 1.005 Urine Protein Negative Urine Glucose (UA) Normal Urine Ketones Negative Urine Occult Blood Negative Urine Nitrite Negative Urine Bilirubin Negative Urine Urobilinogen Normal Ur Leukocyte Esterase 25 H Urine RBC 0 SEEN Urine WBC 0-5 SEEN Ur Squamous Epith Cells 0 SEEN Urine Bacteria 0 SEEN Urine Mucus 0 SEEN Radiography Diagnostic Testing: Clinical Impression(s) from Imaging Studies Brain CT 08/15/22 23:23 IMPRESSION: Chronic periventricular white matter microvascular ischemic changes. Electronically Signed: Nely Perez MD at 0:51 EST , EKG Initial EKG: Attestation: I personally reviewed and interpreted this EKG as follows: Interpretation: Sinus Rhythm (Sinus 86 with no acute ischemia.) Treatment and Re-Evaluation Narrative: CBC is unremarkable. Chemistry studies significant for sodium low at 130 with a chloride of 96. Creatinine is 1.04. Glucose is 133. Urinalysis reveals no acute infection. Head CT reveals chronic white matter changes. EKG reveals no ischemia. Patient has been ordered a liter of IV fluid. I will give her a dose of p.o. Zofran and Antivert. She will be given prescriptions for the same. Test results have been discussed with her at length. She will continue the medication prescribed by her primary care physician and follow-up next week as planned. Discharge Plan Triage Chief Complaint: General Illness ED Provider: Magaly Hurst Dx/Rx/DC Orders Clinical Impression: Vertigo, Paresthesias, Nausea Instructions: ED Vertigo, Unspecified, ED Paraesthesias Prescriptions: New ondansetron 4 mg tablet,disintegrating 4 mg PO Q8H PRN (Reason: nausea and vomiting) Qty: 10 0RF meclizine 25 mg tablet 25 mg PO BID PRN (Reason: dizziness) Qty: 10 0RF No Action multivitamin [Daily Multi-Vitamin] Tablet 1 tab PO DAILY omega 1-vux-ppp-fish oil [Fish Oil] 300-1,000 mg capsule 1 cap PO BID tumeric PO DAILY cetirizine 10 mg tablet 10 mg PO DAILY PRN amlodipine-benazepril 5-20 mg capsule 1 cap PO DAILY Qty: 90 1RF atorvastatin 40 mg tablet 40 mg PO DAILY Qty: 90 1RF cefuroxime axetil 500 mg tablet 500 mg PO BID Qty: 14 0RF fluticasone propionate 50 mcg/actuation spray,suspension 1 spray intranasal DAILY Qty: 16 0RF Rx Instructions: administer into each nostril calcium carbonate 600 MG tablet 600 mg PO BID biotin 5,000 MCG tablet,disintegrating 7,500 mcg PO DAILY cinnamon bark 500 MG capsule 1,000 mg PO DAILY coenzyme Q10 200 MG capsule 200 mg PO DAILY ascorbic acid (vitamin C) 500 MG capsule 500 mg PO DAILY cholecalciferol (vitamin D3) 25 mcg (1,000 unit) tablet 1,000 unit PO BID famotidine 20 mg Tablet 20 mg PO DAILY amlodipine-benazepril [Lotrel] 5-20 mg Capsule 1 cap PO DAILY Primary Care Provider: Aleja Ibanez Referrals: Aleja Ibanez MD [Primary Care Provider] - 1 Week Disposition Disposition: Home, Self Care
[2022-08-14 23:49] LABS: Bacteria 0 SEEN /hpf (None Seen); Mucous, Urine 0 SEEN /hpf (<or=2+); Red Blood Cells-Urine 0 SEEN /hpf (0-5); Squamous Epithelial Cells - UA 0 SEEN /hpf (5-10)
[2022-08-14 23:50] LABS: Absolute Lymphocyte Count 1.29 X10^3/uL (0.83-4.51); Absolute Neutrophil Count 5.2 X10^3/uL (2.0-7.7); Basophil# 0.02 X10^3/uL; Basophil% 0.3 % (0-1); Eosinophil# 0.02 X10^3/uL; Eosinophils% 0.3 % (0-5); Hematocrit 36.9 % (37-47); Hemoglobin 12.5 g/dL (12.0-15.0); Lymphocyte # 1.29 X10^3/ul (0.83-4.51); Lymphocyte % 18.6 % (19-41); Mean Corp Hgb Conc 33.9 g/dL (32-36); Mean Corpuscular Volume 88.5 fL (81-99); Mean Platelet Vol. 8.4 fl (6.2-12.0); Monocyte# 0.41 X10^3/uL; Monocyte% 5.9 % (0-10); NRBC Flagged by Analyzer 0 % (0-5); Neutrophil # 5.18 X10^3/uL (2.7-7.7); Neutrophil % 74.6 % (47-70); Platelet Count 310 K/mm3 (150-450); RBC Distribution Width CV 12.7 % (11.6-14.6); RBC Distribution Width SD 41.1 fl (35.1-43.9); Red Blood Count 4.17 M/mm3 (4.2-5.4); White Blood Count 6.9 K/mm3 (4.4-11.0)
[2022-08-14 23:52] LABS: Color, Urine Straw (Yellow); Glucose, Dipstick Normal (Normal); Ketone-Dipstick Negative (Negative); Leukocyte Esterase-Dipstick 25 /ul (Negative); Nitrite-Dipstick Negative (Negative); Occult Blood-Urine Negative /ul (Negative); Protein-Dipstick Negative (Negative); Specific Gravity, Urine 1.005 (1.002-1.030); Urine Bilirubin Dipstick Negative (Negative); Urine Clarity Clear (Clear); Urine Urobilinogen Normal (Normal)
[2022-08-15 00:01] LABS: White Blood Cells 0-5 SEEN /hpf (0-5)
[2022-08-15 00:09] LABS: Anion Gap 8 (5-15); BUN 14 mg/dL (7-18); BUN/Creat Ratio 13.5 RATIO (10-20); Calcium,Total 9.4 mg/dL (8.5-10.1); Chloride 96 mmol/L (98-107); Creatinine, Serum 1.04 mg/dL (0.55-1.02); EST Glomerular Filtration Rate 55 mL/min (>60); Est Glom Filt Rate - Afr Amer 66 mL/min (>60); Estimated Creatinine Clearance 34.18 ml/min; Glucose 133 mg/dL (74-106); Potassium 4.1 mmol/L (3.5-5.1); Sodium Level 130 mmol/L (136-145)
[2022-08-15 00:33] VITALS: BP 155/88; PULSE 89; RESP 16; O2SAT 97
[2022-08-15] MEDS: Ondansetron ODT 4 MG Tablet PO (01:14)
[2022-08-15] MEDS: Meclizine 12.5 MG Tablet PO (01:14)
--- NOTE | 2022-08-15 23:23 | CT_ITS ---
INDICATION: dizzy, paresthesias EXAMINATION: CT BRAIN - CT Head or Brain W/O Contrast Injection TECHNIQUE: Multiple axial images were obtained of the head without intravenous contrast. A radiation dose optimization technique was used for this scan. IV Contrast dosage and agent: None. COMPARISON: FINDINGS: BRAIN PARENCHYMA: No intra- or extra-axial hemorrhage. No evidence of acute infarct. No intracranial mass or mass effect. Chronic periventricular white matter microvascular ischemic changes. Posterior fossa structures are unremarkable. CSF SPACES: Appropriate for age. No hydrocephalus. Basal cisterns are patent. CALVARIUM, SKULL BASE, PARANASAL SINUSES AND MASTOID AIR CELLS: Clear. No discrete lytic or blastic abnormalities. ORBITS: Both globes, extraocular muscles, optic nerves and retrobulbar fat appear unremarkable. ASPECTS Score for Acute Strokes: 10 CT/Brain/Head without Contrast IMPRESSION: Chronic periventricular white matter microvascular ischemic changes. Electronically Signed: Nely Perez MD at 0:51 EST ,
== END 2022-08-15 02:00 | disposition home or self-care (01) ==
PROVIDERS: Emergency Provider Emergency Medicine; PCP Internal Medicine; Visit Provider Emergency Medicine
DX: R42 Dizziness and giddiness (principal); R11.2 Nausea with vomiting, unspecified; R20.2 Paresthesia of skin; E78.5 Hyperlipidemia, unspecified; I10 Essential (primary) hypertension; K58.9 Irritable bowel syndrome, unspecified
CPT/HCPCS: 70450; 80048; 81001; 85025; 93005; 96360; 99282; J7040; A4216

== ENCOUNTER → 2022-09-11 | Outpatient (CLI) | payer MEDICARE, SELFPAY ==
--- NOTE | 2022-09-11 16:46 | MRI_ITS ---
EXAM: MR HEAD WITHOUT INTRAVENOUS CONTRAST CLINICAL INDICATION: Vertigo -- Attention IAC TECHNIQUE: Multiplanar and multisequence MR images of the brain were obtained without intravenous contrast. This report was created using [employer] report generation technology. COMPARISON: None. FINDINGS: BRAIN AND EXTRA-AXIAL SPACES: Chronic ischemic small vessel white matter disease. Diffuse parenchymal atrophy. No intra- or extra-axial hemorrhage. No evidence of acute infarct. No intracranial mass or mass effect. There is preservation of the gold/white matter interface. Posterior fossa structures are unremarkable. Ventricles are appropriate for age. No hydrocephalus. Basal cisterns are patent. SELLA: Unremarkable. Normal sella turcica, pituitary gland, infundibular stalk, optic chiasm and hypothalamus. AUDITORY SYSTEM: Unremarkable. The internal auditory canals are patent. BONES/JOINTS: Unremarkable. No discrete lytic or blastic abnormalities. SINUSES: Unremarkable as visualized. Clear. MASTOID AIR CELLS: Unremarkable as visualized. Clear. ORBITS: Unremarkable as visualized. Both globes, extraocular muscles, optic nerves and retrobulbar fat appear unremarkable. VASCULATURE: Unremarkable as visualized. Normal flow voids in the major intracranial circulation. MRI/Brain without Contrast IMPRESSION: Chronic ischemic small vessel white matter disease and diffuse parenchymal atrophy. No acute intracranial hemorrhage or acute infarct. Electronically Signed: Morris Chan MD at 21:33 EST ,
== END | disposition home or self-care (01) ==
LOC: MRI 16:46
PROVIDERS: PCP Internal Medicine; Visit Provider Internal Medicine
DX: R42 Dizziness and giddiness (principal)
CPT/HCPCS: 70551

== ENCOUNTER → 2023-03-17 | Outpatient (CLI) | payer MEDICARE, SELFPAY ==
--- NOTE | 2023-03-17 18:18 | US_ITS ---
STUDY: RENAL ULTRASOUND - COMPLETE REASON FOR EXAM: Female, 77 years old. LT CYST TECHNIQUE: Ultrasound evaluation of the kidneys was performed with real-time and static fraser-scale imaging. COMPARISON: None. FINDINGS: Exam markedly limited by patient size and bowel gas. RIGHT KIDNEY: Normal location with moderate renal atrophy. The right kidney measures 7.5 x 3.8 x 3.5 cm. There is diffuse thinning of the renal cortex. There is diffuse increased echogenicity with chronic medical renal disease. There is cortical scarring. There is no right renal mass or cyst. There are no right renal calculi. There is no right hydronephrosis. DISTAL RIGHT URETER: There is non-visualization of the distal right ureter. There is no demonstrated right ureterovesical junction calculus. There is no demonstrated right ureteral jet. LEFT KIDNEY: Normal location with mild renal atrophy. The left kidney measures 8.9 x 3.4 x 4.7 cm. There is diffuse thinning of the renal cortex. There is increased echogenicity consistent with chronic medical renal disease. Cysts are seen measuring as much as 1.4 cm. There are no left renal calculi. There is no left hydronephrosis. DISTAL LEFT URETER: There is non-visualization of the distal left ureter. There is no demonstrated left ureterovesical junction calculus. There is no demonstrated left ureteral jet. BLADDER: Grossly normal bladder contour. There is a normal wall thickness of the distended urinary bladder. There is no demonstrated mass within the urinary bladder. There are no demonstrated bladder calculi. US/Kidney and Bladder IMPRESSION: Limited as above. Bilateral mild to moderate renal atrophy. Evidence of chronic medical renal disease. No gross abnormality. Electronically Signed: German Cabrera MD at 22:45 EDT ,
--- NOTE | 2023-03-17 18:41 | CT_ITS ---
INDICATION: Follow up lung nodule EXAMINATION: CT CHEST WITH CONTRAST - CT Chest W/ Contrast Injection TECHNIQUE: Helically acquired images were obtained of the chest following IV contrast. A radiation dose optimization technique was used for this scan. IV Contrast dosage and agent: 100 cc [id number] COMPARISON: None. FINDINGS: LUNGS, PLEURA AND LARGE AIRWAYS: Scattered dependent and/or fibrotic changes without consolidation or mass lesion. 3 mm perifissural nodule along the major fissure superior segment right lower lobe. No pleural effusion or thickening. THYROID: No thyroid lesions. HEART AND PERICARDIUM: Heart size is normal. No pericardial effusion. VESSELS: Thoracic aorta is not dilated. No aortic dissection. No obvious central pulmonary embolism although this study was not performed with the pulmonary embolism protocol. MEDIASTINUM AND ELVA: No mediastinal or hilar adenopathy. Esophagus is unremarkable. Moderate retrocardiac hiatal hernia. UPPER ABDOMEN: No acute pathology. BONES: No acute or aggressive abnormality. CT/Chest WITH Contrast IMPRESSION: No acute pulmonary findings. 3 mm perifissural nodule right lower lobe superior segment. No follow-up indicated unless patient is at high risk for malignancy where a one-year CT should be considered. Electronically Signed: Oh Perdomo MD at 0:29 EDT ,
[2023-03-17 19:04] LABS: CREATININE FINGERSTICK 1.1 mg/dL (0.55-1.02)
== END | disposition home or self-care (01) ==
PROVIDERS: PCP Internal Medicine; Referring Provider Internal Medicine; Visit Provider Internal Medicine
DX: R91.1 Solitary pulmonary nodule (principal); N28.1 Cyst of kidney, acquired
CPT/HCPCS: 71260; 76770; Q9967

== ENCOUNTER → 2023-03-24 | Outpatient (CLI) | payer MEDICARE, SELFPAY ==
[2023-03-24 10:44] LABS: Absolute Neutrophil Count 3.5 X10^3/uL (2.0-7.7); Basophil# 0.04 X10^3/uL; Basophil% 0.7 % (0-1); Eosinophil# 0.06 X10^3/uL; Hematocrit 41.6 % (37-47); Hemoglobin 13.4 g/dL (12.0-15.0); Lymphocyte % 29.1 % (19-41); Mean Corp Hgb Conc 32.2 g/dL (32-36); Mean Corpuscular Hgb 29.8 pg (27.0-32.0); Mean Corpuscular Volume 92.4 fL (81-99); Mean Platelet Vol. 8.9 fl (6.2-12.0); Monocyte# 0.48 X10^3/uL; Monocyte% 8.2 % (0-10); NRBC Flagged by Analyzer 0 % (0-5); Neutrophil # 3.54 X10^3/uL (2.7-7.7); Neutrophil % 60.5 % (47-70); Platelet Count 305 K/mm3 (150-450); RBC Distribution Width CV 13.3 % (11.6-14.6); RBC Distribution Width SD 45.5 fl (35.1-43.9); White Blood Count 5.9 K/mm3 (4.4-11.0)
[2023-03-24 11:12] LABS: Vitamin D,25 Hydroxy 58.3 ng/mL
[2023-03-24 11:33] LABS: AST(SGOT) 22 U/L (15-37); Alanine Aminotransfer ALT/SGPT 26 U/L (13-56); Albumin, Serum 3.7 g/dL (3.2-5.0); Alkaline Phosphatase 49 U/L (45-117); Anion Gap 5 (5-15); BUN 16 mg/dL (7-18); BUN/Creat Ratio 12.3 RATIO (10-20); Calcium,Total 9.6 mg/dL (8.5-10.1); Chloride 105 mmol/L (98-107); Cholesterol 177 mg/dL (200); EST Glomerular Filtration Rate 42 mL/min (>60); Est Glom Filt Rate - Afr Amer 51 mL/min (>60); Globulin 3.7 g/dL (2.2-4.2); Glucose 103 mg/dL (74-106); High Density Lipoprotein 100 mg/dL; Magnesium 2.4 mg/dL (1.6-2.6); Potassium 4.6 mmol/L (3.5-5.1); Protein, Total 7.4 g/dL (6.4-8.2); Sodium Level 137 mmol/L (136-145); Triglycerides 76 mg/dL; Very Low Density Lipoprotein 15 mg/dL (5-40)
== END | disposition home or self-care (01) ==
LOC: LAB 10:17
PROVIDERS: PCP Internal Medicine; Referring Provider Internal Medicine; Visit Provider Internal Medicine
DX: I10 Essential (primary) hypertension (principal); E55.9 Vitamin D deficiency, unspecified; E78.5 Hyperlipidemia, unspecified
CPT/HCPCS: 36415; 80053; 80061; 82306; 83735; 84443; 85025

== ENCOUNTER 2023-06-16 22:14 | Emergency (ER) | payer MEDICARE, SELFPAY ==
[2023-06-16 22:15] VITALS: BP 162/79; PULSE 87; RESP 16; TEMP 36.3; O2SAT 98; BMI 26.3
[2023-06-16 22:34] VITALS: BP 150/74; PULSE 83; RESP 15; O2SAT 98
--- NOTE | 2023-06-16 22:49 | CT_ITS ---
EXAM: CT ABDOMEN AND PELVIS WITHOUT INTRAVENOUS CONTRAST CLINICAL INDICATION: abd pain TECHNIQUE: Helically acquired images were obtained of the abdomen and pelvis without intravenous contrast. This CT exam was performed using one or more of the following dose reduction techniques: automated exposure control, adjustment of the mA and/or kV according to patient size, and/or use of iterative reconstruction technique. COMPARISON: Renal bladder ultrasound, 03/17/2023 FINDINGS: LOWER THORAX: Coronary artery calcifications. Medium-sized hiatal hernia. Apparent centrilobular emphysema. No cardiomegaly. No significant pericardial effusion. ABDOMEN: LIVER: Mild hepatomegaly. No focal hepatic lesion. GALLBLADDER AND BILE DUCTS: No significant abnormality. No calcified gallstones. No gallbladder distention or wall edema. No intra- or extrahepatic biliary ductal dilation. PANCREAS: No significant abnormality. No focal cystic mass. SPLEEN: No significant abnormality. Normal size without focal cystic or solid mass. ADRENALS: No significant abnormality. No nodules. KIDNEYS AND URETERS: Hyperdense lesion within the interpolar region of the right kidney measuring up to approximately 1.3 cm with subtle heterogeneity. Left renal cyst is present for which no follow-up is indicated. Normal renal size and position. No hydronephrosis. STOMACH AND BOWEL: Diverticulosis of the colon without evidence of acute diverticulitis. No stomach or bowel distention. PELVIS: APPENDIX: Normal appendix identified in the right lower quadrant. BLADDER: No significant abnormality. REPRODUCTIVE: Normal as visualized. No mass. ABDOMEN and PELVIS: INTRAPERITONEAL SPACE: No significant abnormality. No ascites or other fluid collection. No free air. BONES/JOINTS: Degenerative changes in the spine. No suspicious lytic or blastic abnormality. SOFT TISSUES: Small fat-containing umbilical hernia. VASCULATURE: Atherosclerosis of the aorta and its branch vessels. LYMPH NODES: No significant abnormality. No enlarged lymph nodes. CT/Abdomen/Pelvis without Cont IMPRESSION: 1. Hyperdense lesion within the interpolar region of the right kidney measuring up to approximately 1.3 cm with subtle heterogeneity. ACR White Paper guidelines (Mj, et al. JACR 2018; 15(2):264-273) recommend MRI or CT without and with intravenous contrast. 2. Medium-sized hiatal hernia. 3. Apparent centrilobular emphysema. 4. Mild hepatomegaly. No focal hepatic lesion. 5. Diverticulosis of the colon without evidence of acute diverticulitis. Electronically Signed: Steven Sanders DO at 23:54 EST ,
[2023-06-16] MEDS: Ondansetron 4 MG/2 ML Vial IV (22:58)
[2023-06-16] MEDS: Morphine 4 MG/ML Syringe IV (22:58)
[2023-06-16] MEDS: 0.9% Normal Saline (500mL Bag) 500 ML 999 ML IV (22:58)
[2023-06-16 23:02] LABS: Absolute Lymphocyte Count 1.41 X10^3/uL (0.83-4.51); Absolute Neutrophil Count 5.2 X10^3/uL (2.0-7.7); Basophil# 0.02 X10^3/uL; Basophil% 0.3 % (0-1); Eosinophil# 0.02 X10^3/uL; Eosinophils% 0.3 % (0-5); Hemoglobin 12.2 g/dL (12.0-15.0); Lymphocyte # 1.41 X10^3/ul (0.83-4.51); Lymphocyte % 19.4 % (19-41); Mean Corp Hgb Conc 33.9 g/dL (32-36); Mean Corpuscular Volume 88.5 fL (81-99); Mean Platelet Vol. 8.6 fl (6.2-12.0); Monocyte# 0.61 X10^3/uL; Monocyte% 8.4 % (0-10); NRBC Flagged by Analyzer 0 % (0-5); Neutrophil # 5.19 X10^3/uL (2.7-7.7); Neutrophil % 71.2 % (47-70); Platelet Count 247 K/mm3 (150-450); RBC Distribution Width CV 12.4 % (11.6-14.6); RBC Distribution Width SD 40.3 fl (35.1-43.9); Red Blood Count 4.07 M/mm3 (4.2-5.4); White Blood Count 7.3 K/mm3 (4.4-11.0)
[2023-06-16 23:20] LABS: AST(SGOT) 19 U/L (15-37); Alanine Aminotransfer ALT/SGPT 23 U/L (13-56); Albumin, Serum 3.7 g/dL (3.2-5.0); Alkaline Phosphatase 45 U/L (45-117); Anion Gap 6 (5-15); BUN 24 mg/dL (7-18); BUN/Creat Ratio 12.8 RATIO (10-20); Bilirubin, Direct 0.12 mg/dL (0.00-0.30); Calcium,Total 9.2 mg/dL (8.5-10.1); Chloride 95 mmol/L (98-107); Creatinine, Serum 1.88 mg/dL (0.55-1.02); EST Glomerular Filtration Rate 28 mL/min (>60); Est Glom Filt Rate - Afr Amer 33 mL/min (>60); Estimated Creatinine Clearance 18.61 ml/min; Globulin 3.1 g/dL (2.2-4.2); Glucose 121 mg/dL (74-106); Lipase 47 U/L (13-75); Potassium 3.9 mmol/L (3.5-5.1); Protein, Total 6.8 g/dL (6.4-8.2); Sodium Level 128 mmol/L (136-145)
[2023-06-17 00:15] VITALS: BP 120/61
--- NOTE | 2023-06-17 00:46 | EDS_ITS ---
HPI History of Present Illness Chief Complaint: Abd Pain Informant: patient Narrative Narrative: Patient is a 78-year-old female with past medical history of hypertension and hyperlipidemia. She states that she has had pain in the right upper abdomen for approximately 1 week. She states that the pain is constant and does not seem to wax or wane and is not necessary related to motion or eating. She states that she is slightly nauseous from the pain but denies any bouts of vomiting. She denies any loose stool diarrhea or dysuria. She states that as the symptoms not resolved she was concerned that this could be secondary to an ulcer or her gallbladder and therefore comes in for evaluation. [facility] Medical History Anxiety and depression Breast cancer screening Essential (primary) hypertension Eustachian tube dysfunction Hyperlipemia Hyponatremia IBS (irritable bowel syndrome) Insomnia Lumbar stenosis Lung nodule Near syncope Renal cyst Right ear pain Sinus pressure Home Medications cinnamon bark 500 mg capsule 1,000 mg PO DAILY [facility] 04/28/18 [History Last Taken 04/27/18] multivitamin (Daily Multi-Vitamin tablet) 1 tab PO DAILY 09/10/21 [History Last Taken Unknown] ascorbic acid (vitamin C) 500 mg capsule 500 mg PO BID [facility] 09/08/22 [History Last Taken Unknown] aspirin 81 mg tablet,delayed release (Adult Low Dose Aspirin) 81 mg PO DAILY 09/08/22 [History Last Taken Unknown] calcium carbonate 600 mg-vitamin D3 5 mcg (200 unit) capsule (Calcium 600 + D(3)) 1 cap PO BID 09/08/22 [History Last Taken Unknown] coenzyme Q10 100 mg capsule 100 mg PO DAILY 09/08/22 [History Last Taken Unknown] fluticasone propionate 50 mcg/actuation nasal spray,suspension 1 spray intranasal DAILY PRN 09/08/22 [History Last Taken Unknown] loratadine 10 mg tablet 10 mg PO DAILY 09/08/22 [History Last Taken Unknown] cholecalciferol (vitamin D3) 25 mcg (1,000 unit) tablet 1,000 unit PO DAILY [facility] 09/09/22 [History Last Taken Unknown] turmeric root extract 500 mg capsule 1,000 mg PO DAILY 09/09/22 [History Last Taken Unknown] amlodipine 5 mg-benazepril 20 mg capsule (Lotrel) 1 cap PO DAILY #90 caps 09/14/22 [Rx Last Taken Unknown] atorvastatin 40 mg tablet 40 mg PO DAILY #90 tabs 09/14/22 [Rx Last Taken Unknown] famotidine 20 mg tablet 20 mg PO DAILY PRN 03/08/23 [History Last Taken Unknown] pseudoephedrine HCl 30 mg tablet (Sudafed) 30 mg PO BID PRN 03/08/23 [History Last Taken Unknown] pantoprazole 40 mg tablet,delayed release (Protonix) 40 mg PO DAILY 30 days #30 tabs 06/17/23 [Rx Last Taken Unknown] Allergy/AdvReac Type Severity Reaction Status Date / Time adhesive tape Allergy Unknown unknown Verified 03/08/23 13:05 niacin Allergy Unknown myalgias Verified 03/08/23 13:05 [From Niaspan Extended-Release] erythromycin base Allergy Other Verified 03/08/23 13:05 [From Staticin] ethyl alcohol [From Staticin] Allergy Other Verified 03/08/23 13:05 codeine AdvReac Mild Vomiting Verified 03/08/23 13:05 Family History Mother Heart disease Father Heart disease Other Hypertension Surgical History History of parathyroidectomy Social History Smoking Status: Never smoker alcohol intake: never substance use type: does not use caffeine: Yes Type: coffee Number of servings: 1 ROS ROS ED Constitutional Constitutional ED: Denies chills or fever(s) ENT ENT ED: Denies sore throat Cardiovascular Cardiovascular: Denies chest pain Respiratory/Chest Respiratory/Chest: Denies cough or dyspnea Gastrointestinal Gastrointestinal: Reports abdominal pain and nausea; Denies diarrhea or vomiting Genitourinary Genitourinary ED: Denies dysuria Musculoskeletal Musculoskeletal: Denies back pain or myalgias Integumentary Denies rash Neurologic Neurologic: Denies headache(s) Hematologic/Lymphatic Hematologic/Lymphatic: Denies easy bleeding or easy bruising EXAM Physical Exam Const Vital Signs: 06/16/23 22:15 06/16/23 22:33 06/16/23 22:34 Temperature 97.4 F L Temperature Source Temporal Pulse Rate 87 83 Respiratory Rate 16 15 Respiratory Effort Normal Blood Pressure 162/79 H 150/74 H Blood Pressure Mean 106 99 Pulse Ox 98 98 Oxygen Delivery Method Room Air Room Air 06/17/23 00:15 06/17/23 01:18 Temperature Temperature Source Pulse Rate 81 Respiratory Rate 16 Respiratory Effort Blood Pressure 120/61 120/61 Blood Pressure Mean 80 80 Pulse Ox 99 Oxygen Delivery Method Positive well nourished and well developed General Appearance ED: well developed; Negative for pallor HEENT Reports moist mucous membranes HEENT Narrative: No signs of infection noted in the posterior pharynx Eyes PERRL and EOMs intact bilaterally General Eye ED: Negative for scleral icterus Neck supple Resp normal respiratory effort and clear to auscultation bilaterally Cardio regular rate and regular rhythm Rate: other Other Details: Heart is regular rate and rhythm without murmurs rubs or gallops Radial and carotid pulses are equal and symmetric GI non-distended GI Narrative: Abdomen is soft and nondistended with normal active bowel sounds. There is pain on palpation in the midepigastric and right upper quadrant regions without voluntary guarding or rigidity. Negative Gonzalez sign. No hernia palpated. No pulsatile mass or fluid wave. Auscultation: normoactive bowel sounds Palpation: soft Back/Spine no CVA tenderness Extremity normal to inspection Neuro oriented x3, CN's II-XII intact bilaterally and no sensory deficits noted Sensorium / Orientation: alert Motor Exam: strength 5/5 throughout Psych mental status grossly normal Skin no rashes or lesions noted General Skin Exam: Negative for jaundice or pallor MDM MDM MDM Narrative Medical decision making narrative: Patient presented to the ER slightly hypertensive otherwise with stable vitals. She reported persistent pain in the right upper quadrant for the past week without worsening symptoms after eating. She also denied any vomiting loose stool or diarrhea or dysuria. Differential diagnosis is for acute coronary syndrome versus biliary colic versus acute cholecystitis versus common bile duct stone versus pancreatitis versus gastritis/ulcer. Basic blood work was obtained which shows no white count and no elevation to the liver enzymes or her lipase going against a biliary or pancreatic cause. The patient's kidney function is slightly elevated at 1.88 from her baseline of approximately 1.4. There is concern this could be related to an atypical kidney stone so a noncontrast CT was obtained. This revealed a mass in her right kidney but otherwise no clinically significant findings. Patient was informed of this mass and states that it has been known and has been previously evaluated with ultrasound. Therefore at this time as the CT scan does not show signs of acute cholecystitis or pancreatitis or signs of intestinal infection or obstruction or obvious kidney stone and her laboratory studies do not reveal any signs of acute kidney injury or severe electrolyte derangement or signs of infection she is safe for discharge. The patient did have improvement of pain with Pepcid GI cocktail and morphine. As there is concern that this pain could be related to gastritis or early developing ulcer she be placed on Protonix for home History & Record Review Discussion w/independent historian: Patient Lab Data Attestation: I reviewed the patient's lab results. Labs: Laboratory Results - last 24 hr 06/16/23 22:52 WBC 7.3 RBC 4.07 L Hgb 12.2 Hct 36.0 L MCV 88.5 MCH 30.0 MCHC 33.9 RDW Std Deviation 40.3 RDW Coeff of Cira 12.4 Plt Count 247 MPV 8.6 Immature Gran % (Auto) 0.400 Neut % (Auto) 71.2 H Lymph % (Auto) 19.4 [place] % (Auto) 8.4 Eos % (Auto) 0.3 Baso % (Auto) 0.3 Absolute Neuts (auto) 5.2 Absolute Lymphs (auto) 1.41 Nucleated RBC % 0 Sodium 128 L Potassium 3.9 Chloride 95 L Carbon Dioxide 27.0 Anion Gap 6 BUN 24 H Creatinine 1.88 H Estim Creat Clear Calc 18.61 Est GFR (MDRD) Af Amer 33 L Est GFR (MDRD) Non-Af 28 L BUN/Creatinine Ratio 12.8 Glucose 121 H Calcium 9.2 Total Bilirubin 0.40 Direct Bilirubin 0.12 AST 19 ALT 23 Alkaline Phosphatase 45 Total Protein 6.8 Albumin 3.7 Globulin 3.1 Lipase 47 Radiography Diagnostic Testing: Clinical Impression(s) from Imaging Studies Abdomen/Pelvis CT 06/16/23 22:49 IMPRESSION: 1. Hyperdense lesion within the interpolar region of the right kidney measuring up to approximately 1.3 cm with subtle heterogeneity. ACR White Paper guidelines (Mj, et al. JACR 2018; 15(2):264-273) recommend MRI or CT without and with intravenous contrast. 2. Medium-sized hiatal hernia. 3. Apparent centrilobular emphysema. 4. Mild hepatomegaly. No focal hepatic lesion. 5. Diverticulosis of the colon without evidence of acute diverticulitis. Electronically Signed: Steven BrennanDO luís at 23:54 EST , ADDENDUM: 06/17/23 0004 IMPRESSION: 1. Hyperdense lesion within the interpolar region of the right kidney measuring up to approximately 1.3 cm with subtle heterogeneity. ACR White Paper guidelines (Heribrahima, et al. JACR 2018; 15(2):264-273) recommend MRI or CT without and with intravenous contrast. 2. Medium-sized hiatal hernia. 3. Apparent centrilobular emphysema. 4. Mild hepatomegaly. No focal hepatic lesion. 5. Diverticulosis of the colon without evidence of acute diverticulitis. N.B. : Morris Callejas DO, confirmed on 06/16/2023 23:57:18 (ET) that the healthcare facility has received the radiology report. Electronically Signed: Steven Hurst DO Tommy at 23:54 EST , Discharge Plan Triage Chief Complaint: Abd Pain ED Provider: Morris Callejas Dx/Rx/DC Orders Clinical Impression: Nonspecific abdominal pain, Renal mass, right, Essential (primary) hypertension, Renal insufficiency Instructions: Abdominal Pain Prescriptions: New pantoprazole [Protonix] 40 mg tablet,delayed release (DR/EC) 40 mg PO DAILY 30 Days Qty: 30 0RF No Action multivitamin [Daily Multi-Vitamin] Tablet 1 tab PO DAILY aspirin [Adult Low Dose Aspirin] 81 mg tablet,delayed release (DR/EC) 81 mg PO DAILY loratadine 10 mg tablet 10 mg PO DAILY coenzyme Q10 100 mg capsule 100 mg PO DAILY Calcium 600 + D(3) 600 mg-5 mcg (200 unit) capsule 1 cap PO BID fluticasone propionate 50 mcg/actuation spray,suspension 1 spray intranasal DAILY PRN Rx Instructions: administer into each nostril turmeric root extract 500 mg capsule 1,000 mg PO DAILY famotidine 20 mg tablet 20 mg PO DAILY PRN pseudoephedrine HCl [Sudafed] 30 mg tablet 30 mg PO BID PRN cinnamon bark 500 MG capsule 1,000 mg PO DAILY ascorbic acid (vitamin C) 500 mg capsule 500 mg PO BID cholecalciferol (vitamin D3) 25 mcg (1,000 unit) tablet 1,000 unit PO DAILY amlodipine-benazepril [Lotrel] 5-20 mg capsule 1 cap PO DAILY Qty: 90 3RF atorvastatin 40 mg tablet 40 mg PO DAILY Qty: 90 3RF Primary Care Provider: Aleja Ibanez Referrals: Aleja Ibanez MD [Primary Care Provider] - Activity Restrictions/Additional Instructions: Your CT scan today showed a mass to your right kidney and therefore talk to your family doctor about ultrasound or MRI to further evaluate this. There is no obvious signs of gallstone or gallbladder infection or damage to your pancreas. You may need a EGD to look at your stomach and intestine to check for possible ulcer. Take the Protonix as directed to see if this helps reduce symptoms and return to the ER should you have any further concerns. Disposition Disposition: Home, Self Care Discharge Date/Time: 06/17/23 01:18
[2023-06-17] MEDS: Mag Hydrox/Al Hydrox/Simeth 30 ML UDC PO (01:12)
[2023-06-17] MEDS: Famotidine 200 MG/20 ML MDV 20 MG in 0.9% Normal Saline (Pres. free 8 ML 300 MG IV (01:12)
[2023-06-17 01:18] VITALS: BP 120/61; PULSE 81; RESP 16; O2SAT 99
== END 2023-06-17 01:18 | disposition home or self-care (01) ==
PROVIDERS: Emergency Provider Emergency Medicine; PCP Internal Medicine; Visit Provider Emergency Medicine
DX: R10.11 Right upper quadrant pain (principal); N28.89 Other specified disorders of kidney and ureter; I10 Essential (primary) hypertension; E78.5 Hyperlipidemia, unspecified; Z79.899 Other long term (current) drug therapy
CPT/HCPCS: 74176; 80048; 80076; 83690; 85025; 93005; 96361; 96374; 96375; 99285; J7030; A4216; J2405; J3490

== ENCOUNTER → 2023-06-23 | Outpatient (CLI) | payer MEDICARE, SELFPAY ==
[2023-06-23 11:27] LABS: Bacteria 0 SEEN /hpf (None Seen); Mucous, Urine 0 SEEN /hpf (<or=2+); Red Blood Cells-Urine 0 SEEN /hpf (0-5)
[2023-06-23 12:38] LABS: Color, Urine Yellow (Yellow); Glucose, Dipstick Normal (Normal); Ketone-Dipstick Negative (Negative); Leukocyte Esterase-Dipstick 25 /ul (Negative); Nitrite-Dipstick Negative (Negative); Occult Blood-Urine Negative /ul (Negative); Protein-Dipstick Negative (Negative); Urine Bilirubin Dipstick Negative (Negative); Urine Clarity Sl. Cloudy (Clear); Urine Urobilinogen Normal (Normal); Urine pH 6.5 (5.0 - 8.0)
[2023-06-23 12:39] LABS: Absolute Lymphocyte Count 1.54 X10^3/uL (0.83-4.51); Basophil# 0.04 X10^3/uL; Basophil% 0.6 % (0-1); Eosinophil# 0.02 X10^3/uL; Eosinophils% 0.3 % (0-5); Hematocrit 40.9 % (37-47); Hemoglobin 13.9 g/dL (12.0-15.0); Lymphocyte # 1.54 X10^3/ul (0.83-4.51); Lymphocyte % 21.7 % (19-41); Mean Corpuscular Hgb 31.1 pg (27.0-32.0); Mean Corpuscular Volume 91.5 fL (81-99); Mean Platelet Vol. 9.3 fl (6.2-12.0); NRBC Flagged by Analyzer 0 % (0-5); Neutrophil # 4.99 X10^3/uL (2.7-7.7); Neutrophil % 70.1 % (47-70); Platelet Count 333 K/mm3 (150-450); RBC Distribution Width CV 12.7 % (11.6-14.6); RBC Distribution Width SD 42.2 fl (35.1-43.9); Red Blood Count 4.47 M/mm3 (4.2-5.4); White Blood Count 7.1 K/mm3 (4.4-11.0)
[2023-06-23 12:58] LABS: Squamous Epithelial Cells - UA 0-5 SEEN /hpf (5-10); White Blood Cells 0-5 SEEN /hpf (0-5)
[2023-06-23 13:26] LABS: ALB/GLOB Ratio 1.1 RATIO (0.9-2.4); AST(SGOT) 20 U/L (15-37); Alanine Aminotransfer ALT/SGPT 25 U/L (13-56); Alkaline Phosphatase 49 U/L (45-117); Anion Gap 6 (5-15); BUN 13 mg/dL (7-18); BUN/Creat Ratio 11.2 RATIO (10-20); Calcium,Total 9.5 mg/dL (8.5-10.1); Chloride 99 mmol/L (98-107); Creatinine, Serum 1.16 mg/dL (0.55-1.02); EST Glomerular Filtration Rate 48 mL/min (>60); Est Glom Filt Rate - Afr Amer 58 mL/min (>60); Globulin 3.7 g/dL (2.2-4.2); Glucose 99 mg/dL (74-106); Magnesium 2.4 mg/dL (1.6-2.6); Potassium 4.4 mmol/L (3.5-5.1); Protein, Total 7.7 g/dL (6.4-8.2); Sodium Level 132 mmol/L (136-145)
== END | disposition home or self-care (01) ==
LOC: LAB 11:23
PROVIDERS: PCP Internal Medicine; Visit Provider Internal Medicine
DX: K21.9 Gastro-esophageal reflux disease without esophagitis (principal); N28.89 Other specified disorders of kidney and ureter; R10.9 Unspecified abdominal pain; R79.89 Other specified abnormal findings of blood chemistry; R91.1 Solitary pulmonary nodule
CPT/HCPCS: 36415; 80053; 81001; 83735; 85025

== ENCOUNTER 2023-06-28 00:05 | Emergency (ER) | payer MEDICARE, SELFPAY ==
[2023-06-28 00:07] VITALS: BP 163/70; PULSE 83; RESP 15; TEMP 36.7; O2SAT 99; BMI 26.5
--- NOTE | 2023-06-28 00:34 | EKG12_ITS ---
Test Reason : DYSRHYTHMIA Blood Pressure : / mmHG Vent. Rate : 083 BPM Atrial Rate : 083 BPM P-R Int : 148 ms QRS Dur : 070 ms QT Int : 360 ms P-R-T Axes : 069 015 053 degrees QTc Int : 423 ms Normal sinus rhythm Normal ECG Confirmed by MALLORY HUGHES, RAKESH ([id number]), sports editor IRENE HICKEY ([id number]) on 06/28/2023 11:01:46 AM Referred By: Confirmed By:RAKESH TEJADA MD
--- NOTE | 2023-06-28 00:38 | EDS_ITS ---
HPI History of Present Illness Chief Complaint: Anxiety Informant: patient and family Narrative Narrative: 78-year-old female presenting to the emergency room with the chief complaint of anxiety. Patient states that for the past month she has not felt right. She states she originally went to her chiropractor and was discussing her acid reflux. They recommended that she take a supplement which she did but after taking it it upset her stomach. She states she was placed on Protonix. She states that since being on Protonix she has been getting tingling in her extremities feeling generally weak and now has some right-sided chest discomfort going up into her neck. She states that they also gave her Carafate a few days ago which seems to be making her worse as well. She saw her doctor who recommended her decreasing her Protonix dose by half. She states she has been doing that for the past 4 days. She states that she feels very anxious. Patient seems rather exacerbated and ends questioning at times with what ever. She does note urinary frequency. She denies muscle spasms. Son states that she was hospitalized in the past one of the things that they found on her was a low sodium level. He does not know why that occurred. [facility] Medical History Anxiety and depression Breast cancer screening Essential (primary) hypertension Eustachian tube dysfunction Hyperlipemia Hyponatremia IBS (irritable bowel syndrome) Insomnia Lumbar stenosis Lung nodule Near syncope Renal cyst Right ear pain Sinus pressure Home Medications cinnamon bark 500 mg capsule 1,000 mg PO DAILY [facility] 04/28/18 [History Last Taken 04/27/18] multivitamin (Daily Multi-Vitamin tablet) 1 tab PO DAILY 09/10/21 [History Last Taken Unknown] ascorbic acid (vitamin C) 500 mg capsule 500 mg PO BID [facility] 09/08/22 [History Last Taken Unknown] aspirin 81 mg tablet,delayed release (Adult Low Dose Aspirin) 81 mg PO DAILY 09/08/22 [History Last Taken Unknown] calcium carbonate 600 mg-vitamin D3 5 mcg (200 unit) capsule (Calcium 600 + D(3)) 1 cap PO BID 09/08/22 [History Last Taken Unknown] coenzyme Q10 100 mg capsule 100 mg PO DAILY 09/08/22 [History Last Taken Unknown] fluticasone propionate 50 mcg/actuation nasal spray,suspension 1 spray intranasal DAILY PRN 09/08/22 [History Last Taken Unknown] loratadine 10 mg tablet 10 mg PO DAILY 09/08/22 [History Last Taken Unknown] cholecalciferol (vitamin D3) 25 mcg (1,000 unit) tablet 1,000 unit PO DAILY [facility] 09/09/22 [History Last Taken Unknown] turmeric root extract 500 mg capsule 1,000 mg PO DAILY 09/09/22 [History Last Taken Unknown] amlodipine 5 mg-benazepril 20 mg capsule (Lotrel) 1 cap PO DAILY #90 caps 09/14/22 [Rx Last Taken Unknown] atorvastatin 40 mg tablet 40 mg PO DAILY #90 tabs 09/14/22 [Rx Last Taken Unknown] famotidine 20 mg tablet 20 mg PO DAILY PRN 03/08/23 [History Last Taken Unknown] pseudoephedrine HCl 30 mg tablet (Sudafed) 30 mg PO BID PRN 03/08/23 [History Last Taken Unknown] pantoprazole 40 mg tablet,delayed release (Protonix) 40 mg PO DAILY 30 days #30 tabs 06/17/23 [Rx Last Taken Unknown] sucralfate 1 gram tablet (Carafate) 1 g PO QACHS #60 tabs 06/24/23 [Rx Last Taken Unknown] Allergy/AdvReac Type Severity Reaction Status Date / Time adhesive tape Allergy Unknown unknown Verified 06/28/23 00:18 niacin Allergy Unknown myalgias Verified 06/28/23 00:18 [From Niaspan Extended-Release] erythromycin base Allergy Other Verified 06/28/23 00:18 [From Staticin] ethyl alcohol [From Staticin] Allergy Other Verified 06/23/23 10:33 codeine AdvReac Mild Vomiting Verified 06/28/23 00:18 Family History Mother Heart disease Father Heart disease Other Hypertension Surgical History History of parathyroidectomy Social History Smoking Status: Never smoker alcohol intake: never substance use type: does not use caffeine: Yes Type: coffee Number of servings: 1 ROS ROS ED Constitutional Constitutional ED: Denies chills or weight loss Eyes Eyes: Denies change in vision or diplopia ENT ENT ED: Denies ear pain, rhinorrhea or sore throat Cardiovascular Cardiovascular: Reports chest pain; Denies orthopnea, palpitations or racing heartbeat Respiratory/Chest Respiratory/Chest: Denies cough, dyspnea or orthopnea Gastrointestinal Gastrointestinal: Denies abdominal pain, diarrhea, nausea or vomiting Genitourinary Genitourinary ED: Denies dysuria, hematuria or urinary frequency Musculoskeletal Musculoskeletal: Reports neck pain; Denies arthralgias or myalgias Integumentary Denies abscess or rash Neurologic Neurologic: Reports paresthesias; Denies headache(s) or weakness Psychiatric Psychiatric: Reports anxiety; Denies depression, suicidal ideation or suicidal thoughts Endocrine Endocrinology: Denies polydipsia, polyphagia or polyuria Allergic/Immunologic Allergic/Immunologic ED: Denies mouth swelling, tongue swelling or urticaria EXAM Physical Exam Const Vital Signs: 06/28/23 00:07 Temperature 98.0 F Temperature Source Oral Pulse Rate 83 Respiratory Rate 15 Blood Pressure 163/70 H Blood Pressure Mean 101 Pulse Ox 99 Oxygen Delivery Method Room Air Positive well nourished and well developed General Appearance ED: well developed HEENT Reports normocephalic, head/scalp atraumatic and moist mucous membranes Eyes PERRL and EOMs intact bilaterally Neck no lymphadenopathy, supple and no JVD Resp normal respiratory effort and clear to auscultation bilaterally Cardio regular rate, regular rhythm and no murmurs GI normal to inspection, nondistended, normoactive bowel sounds and non-tender Palpation: soft Back/Spine no CVA tenderness and normal ROM Extremity normal to inspection General Extremety ED: Negative for edema General Extremity: Negative for edema Neuro oriented x3 and CN's II-XII intact bilaterally Sensorium / Orientation: alert Motor Exam: strength 5/5 throughout Psych Mood & Affect: anxious; Negative for depressed or tearful Skin no rashes or lesions noted and no wounds MDM MDM MDM Narrative Medical decision making narrative: Patient's potassium is 125. She has been hyponatremic on many different blood draws typically around 130. Her magnesium is normal at 2. Potassium 4.2. No evidence of anemia and a white count of 7.2. Urinalysis is normal. Troponin is normal at 9. This represents a normal troponin at greater than 6 hours of symptoms. My independent interpretation of the chest x-ray is no acute process normal mediastinal silhouette. I do not see evidence of ACS and I do not see evidence of dissection or aneurysm. I do not see pulmonary cause for the patient's symptoms. She has no pleuritic or shortness of breath to make me feel that this is a clinically significant pulmonary embolism that would require treatment. It is possible the hyponatremia that she typically has has been exacerbated by the Protonix. She feels that her symptoms all began when she was put on the medications. She would like to discontinue them I do not see at this point that there is a harm in that. She drinks 50 to 60 ounces of water. I would advise follow-up with primary care if not improving History & Record Review Discussion w/independent historian: Patient and Family Lab Data Attestation: I reviewed the patient's lab results. Labs: Laboratory Results - last 24 hr 06/28/23 06/28/23 00:40 01:55 WBC 7.2 RBC 4.21 Hgb 12.6 Hct 37.1 MCV 88.1 MCH 29.9 MCHC 34.0 RDW Std Deviation 40.0 RDW Coeff of Cira 12.5 Plt Count 308 MPV 8.4 Immature Gran % (Auto) 0.300 Neut % (Auto) 68.4 Lymph % (Auto) 21.3 Reagan % (Auto) 8.6 Eos % (Auto) 0.7 Baso % (Auto) 0.7 Absolute Neuts (auto) 4.9 Absolute Lymphs (auto) 1.53 Nucleated RBC % 0 Sodium 125 L Potassium 4.2 Chloride 92 L Carbon Dioxide 25.0 Anion Gap 8 BUN 15 Creatinine 1.10 H Estim Creat Clear Calc 31.81 Est GFR (MDRD) Af Amer 62 Est GFR (MDRD) Non-Af 51 L BUN/Creatinine Ratio 13.6 Glucose 111 H Calcium 8.9 Magnesium 2.0 Troponin I High Sens 9 Urine Color Yellow Urine Clarity Clear Urine pH 7.0 Ur Specific [place] 1.010 Urine Protein Negative Urine Glucose (UA) Normal Urine Ketones Negative Urine Occult Blood Negative Urine Nitrite Negative Urine Bilirubin Negative Urine Urobilinogen Normal Ur Leukocyte Esterase 25 H Urine RBC 0 SEEN Urine WBC 0 SEEN Ur Squamous Epith Cells 0 SEEN Urine Bacteria 0 SEEN Urine Mucus 0 SEEN Radiography Diagnostic Testing: Clinical Impression(s) from Imaging Studies Chest X-Ray 06/28/23 00:55 IMPRESSION: No acute pulmonary finding. Electronically Signed: Odilon Cartwright MD at 1:08 EST , EKG Initial EKG: Attestation: I personally reviewed and interpreted this EKG as follows: Comments: Normal sinus rhythm ventricular rate of 83 bpm Prior EKG tracings: available for review Prior: Unchanged Discharge Plan Triage Chief Complaint: Anxiety ED Provider: Navin Armendariz Dx/Rx/DC Orders Clinical Impression: Paresthesia, Anxiety, Hyponatremia, Chest pain Instructions: ED Anxiety Reaction, ED Chest Pain, Noncardiac, ED Hyponatremia Prescriptions: No Action multivitamin [Daily Multi-Vitamin] Tablet 1 tab PO DAILY aspirin [Adult Low Dose Aspirin] 81 mg tablet,delayed release (DR/EC) 81 mg PO DAILY loratadine 10 mg tablet 10 mg PO DAILY coenzyme Q10 100 mg capsule 100 mg PO DAILY Calcium 600 + D(3) 600 mg-5 mcg (200 unit) capsule 1 cap PO BID fluticasone propionate 50 mcg/actuation spray,suspension 1 spray intranasal DAILY PRN Rx Instructions: administer into each nostril turmeric root extract 500 mg capsule 1,000 mg PO DAILY famotidine 20 mg tablet 20 mg PO DAILY PRN pseudoephedrine HCl [Sudafed] 30 mg tablet 30 mg PO BID PRN cinnamon bark 500 MG capsule 1,000 mg PO DAILY ascorbic acid (vitamin C) 500 mg capsule 500 mg PO BID cholecalciferol (vitamin D3) 25 mcg (1,000 unit) tablet 1,000 unit PO DAILY pantoprazole [Protonix] 40 mg tablet,delayed release (DR/EC) 40 mg PO DAILY 30 Days Qty: 30 0RF amlodipine-benazepril [Lotrel] 5-20 mg capsule 1 cap PO DAILY Qty: 90 3RF atorvastatin 40 mg tablet 40 mg PO DAILY Qty: 90 3RF sucralfate [Carafate] 1 gram tablet 1 g PO QACHS Qty: 60 0RF Primary Care Provider: Aleja Ibanez Referrals: Aleja Ibanez MD [Primary Care Provider] - 1 Week Activity Restrictions/Additional Instructions: I would recommend discontinuing your Protonix and Carafate. Disposition Disposition: Home, Self Care
--- NOTE | 2023-06-28 00:55 | RAD_ITS ---
INDICATION: chest pain EXAMINATION/TECHNIQUE: X-RAY - XR Chest 1 View COMPARISON: Prior study dated: 04/28/2018 FINDINGS: LINES/DEVICES: Cardiac leads overlie the chest. LUNGS: The lungs are well expanded. No consolidation, edema or effusion. No pneumothorax. MEDIASTINUM AND CARDIOVASCULAR STRUCTURES: Cardiac silhouette not enlarged. Aortic calcifications. Central airways and mediastinal contour are unremarkable. BONES AND SOFT TISSUES: No acute abnormality. RAD/Chest 1 View (Portable) IMPRESSION: No acute pulmonary finding. Electronically Signed: Odilon Cartwright MD at 1:08 EST ,
[2023-06-28 00:59] LABS: Absolute Lymphocyte Count 1.53 X10^3/uL (0.83-4.51); Absolute Neutrophil Count 4.9 X10^3/uL (2.0-7.7); Basophil# 0.05 X10^3/uL; Basophil% 0.7 % (0-1); Eosinophil# 0.05 X10^3/uL; Eosinophils% 0.7 % (0-5); Hematocrit 37.1 % (37-47); Hemoglobin 12.6 g/dL (12.0-15.0); Lymphocyte # 1.53 X10^3/ul (0.83-4.51); Lymphocyte % 21.3 % (19-41); Mean Corpuscular Hgb 29.9 pg (27.0-32.0); Mean Corpuscular Volume 88.1 fL (81-99); Mean Platelet Vol. 8.4 fl (6.2-12.0); Monocyte# 0.62 X10^3/uL; Monocyte% 8.6 % (0-10); NRBC Flagged by Analyzer 0 % (0-5); Neutrophil # 4.92 X10^3/uL (2.7-7.7); Neutrophil % 68.4 % (47-70); Platelet Count 308 K/mm3 (150-450); RBC Distribution Width CV 12.5 % (11.6-14.6); Red Blood Count 4.21 M/mm3 (4.2-5.4); White Blood Count 7.2 K/mm3 (4.4-11.0)
[2023-06-28 01:20] LABS: Anion Gap 8 (5-15); BUN 15 mg/dL (7-18); BUN/Creat Ratio 13.6 RATIO (10-20); Calcium,Total 8.9 mg/dL (8.5-10.1); Chloride 92 mmol/L (98-107); EST Glomerular Filtration Rate 51 mL/min (>60); Est Glom Filt Rate - Afr Amer 62 mL/min (>60); Estimated Creatinine Clearance 31.81 ml/min; Glucose 111 mg/dL (74-106); Potassium 4.2 mmol/L (3.5-5.1); Sodium Level 125 mmol/L (136-145); Troponin-I HS 9 pg/mL (3.0-54.0)
[2023-06-28 02:01] LABS: Bacteria 0 SEEN /hpf (None Seen); Mucous, Urine 0 SEEN /hpf (<or=2+); Red Blood Cells-Urine 0 SEEN /hpf (0-5); Squamous Epithelial Cells - UA 0 SEEN /hpf (5-10); White Blood Cells 0 SEEN /hpf (0-5)
[2023-06-28 02:03] LABS: Color, Urine Yellow (Yellow); Glucose, Dipstick Normal (Normal); Ketone-Dipstick Negative (Negative); Leukocyte Esterase-Dipstick 25 /ul (Negative); Nitrite-Dipstick Negative (Negative); Occult Blood-Urine Negative /ul (Negative); Protein-Dipstick Negative (Negative); Urine Bilirubin Dipstick Negative (Negative); Urine Clarity Clear (Clear); Urine Urobilinogen Normal (Normal)
[2023-06-28 03:03] VITALS: BP 150/70; PULSE 65; RESP 12; O2SAT 96
== END 2023-06-28 03:05 | disposition home or self-care (01) ==
PROVIDERS: Emergency Provider Emergency Medicine; PCP Internal Medicine; Visit Provider Emergency Medicine
DX: R20.2 Paresthesia of skin (principal); E87.1 Hypo-osmolality and hyponatremia; E78.5 Hyperlipidemia, unspecified; R35.0 Frequency of micturition; R07.9 Chest pain, unspecified; I10 Essential (primary) hypertension; M54.2 Cervicalgia; F41.9 Anxiety disorder, unspecified; Z79.82 Long term (current) use of aspirin; Z79.899 Other long term (current) drug therapy
CPT/HCPCS: 71045; 80048; 81001; 83735; 84484; 85025; 93005; 99284; A4216

== ENCOUNTER → 2023-07-08 | Outpatient (CLI) | payer MEDICARE, SELFPAY ==
--- NOTE | 2023-07-08 13:23 | CT_ITS ---
STUDY: CT ABDOMEN WITH AND WITHOUT CONTRAST REASON FOR EXAM: Female, 78 years old. Right kidney mass, indeterminate RADIATION DOSAGE (If Supplied By Facility): CTDIvol = ( 9.79 ) mGy, DLP = ( 533.17 ) mGycm TECHNIQUE: Transaxial images were obtained pre and post I.V. administration of IV, and without oral contrast. Sagittal and coronal images were reconstructed. Individualized dose optimization techniques were used for this CT. COMPARISON: Comparison is made with prior study dated June 16, 2023. FINDINGS: The visualized lung bases are unremarkable. The visualized portions of the heart are within normal limits. There is hepatomegaly with diffuse hepatic enlargement. Hepatomegaly. Normal gallbladder and extrahepatic biliary system. Normal spleen. Normal pancreas. Normal bilateral adrenal glands. Multiple bilateral renal cysts. Once again, there is evidence of a 1.3 cm x 1.2 cm hyperdense nodule in the lateral midportion of the right kidney. Correlation with renal sonogram is recommended. There is a moderate-sized hiatal hernia. Normal small intestine. Normal colon. The appendix is visualized and appears normal. There is diffuse atherosclerotic calcification of the abdominal aorta and its major visceral branches, without a demonstrated aneurysm. Normal inferior vena cava. Normal retroperitoneum. Normal abdominal wall. Normal osseous structures. CT/Abdomen W/WO IV Contrast IMPRESSION: Stable examination. Correlation with ultrasound of both kidneys recommended for further evaluation. Electronically Signed: Garry Ghosh MD at 15:04 EST ,
[2023-07-08 14:11] LABS: Anion Gap 5 (5-15); BUN 17 mg/dL (7-18); BUN/Creat Ratio 14.8 RATIO (10-20); Calcium,Total 10.9 mg/dL (8.5-10.1); Chloride 96 mmol/L (98-107); Creatinine, Serum 1.15 mg/dL (0.55-1.02); EST Glomerular Filtration Rate 49 mL/min (>60); Est Glom Filt Rate - Afr Amer 59 mL/min (>60); Glucose 116 mg/dL (74-106); Magnesium 2.1 mg/dL (1.6-2.6); Sodium Level 131 mmol/L (136-145); T4 Free Direct 1.39 ng/dL (0.76-1.46); Thyroid Stim Hormone (TSH) 0.42 uIU/mL (0.358-3.74)
== END | disposition home or self-care (01) ==
LOC: CT 12:49
PROVIDERS: PCP Internal Medicine; Referring Provider Internal Medicine; Visit Provider Internal Medicine
DX: K21.9 Gastro-esophageal reflux disease without esophagitis (principal); R79.89 Other specified abnormal findings of blood chemistry; I10 Essential (primary) hypertension; F41.9 Anxiety disorder, unspecified; E78.00 Pure hypercholesterolemia, unspecified; N28.89 Other specified disorders of kidney and ureter
CPT/HCPCS: 36415; 74170; 80048; 83735; 84439; 84443; 84481; Q9967

== ENCOUNTER → 2023-07-09 | Outpatient (CLI) | payer MEDICARE, SELFPAY ==
[2023-07-09 13:55] LABS: Ionized Calcium 5.52 mg/dL (4.36-5.20)
== END | disposition home or self-care (01) ==
LOC: LAB 13:27
PROVIDERS: PCP Internal Medicine; Referring Provider Internal Medicine; Visit Provider Internal Medicine
DX: E83.52 Hypercalcemia (principal)
CPT/HCPCS: 36415; 82330

== ENCOUNTER → 2023-07-23 | Outpatient (CLI) | payer MEDICARE, SELFPAY ==
--- OUTSIDE RECORDS SUMMARY | 2023-07-23 11:42 | XMS RPT_ITS | CCD ---
Author Name Unknown Address [address] [place] [address] Organization [facility] Care Team Providers Care Log Cooker Name Role Phone CHELSI BURTON Primary Care Unavailable MAYI PINTO Attending Unavaila LINH Babcock Admitting Unavailable MAYI PINTO Referring Unavaila DOUGLAS Dasilva Consulting Unavailab DEMETRIS Lucas Attending Unavailable CHELSI BURTON Primary Care Unavailable Allergies Allergy Classification Reported Allergen(s) Allergy Type Date of Onset Reaction(s) Facility (2 sources) Adhesive Tape; Translations: [ADHESIVE TAPE (ROSINS)] Propensity to adverse reactions (disorder) 5 [facility] Repository (2 sources) Codeine; Translations: [CODEINE] Drug Allergy 5 [facility] Repository (2 sources) Erythromycin; Translations: [ERYTHROMYCIN] Drug Allergy 7 [facility] Repository (2 sources) Niacin; Translations: [NIACIN] Drug Allergy 1 [facility] Repository Problems Problem Classification Problem Date Documented Da te Episodic/Chronic Fluid and electrolyte disorders (2 sources) Hypo-osmolality and hyponatremia; Translations: [Hyponatremia] Onset: 08-26-2022 Episodic Nonspecific chest pain (1 source) Chest pain, unspecified; Translations: [Chest pain, unspecified type] Onset: 08-26-2022 Episodic Other screening for suspected conditions (not mental disorders or infectious disease) (1 source) Abnormal findings on diagnostic imaging of other specified body structures; Translations: [Nodular radiologic density] Onset: 08-26-2022 Chronic Results Test Name Value Interpretation Reference Range Facil ity Encounters Encounter Date Encounter Type Care Provider Facility Start: 08-26-2022 End: 08-28-2022 ambulatory [facility] Facility:[facility] ital Start: 08-26-2022 End: 08-26-2022 Emergency department patient visit CHELSI BURTON Facility:[facility] Payers Date Payer Category Payer Unknown [id number] Plan of care note 08-27-2022 Note Date & Type Note Facility 08-27-2022 Note HNO ID: [id number] Author: Robin Ayala MD Service: Hospital Medicine Author Type: Physician Type: Plan of Care Filed: 08/27/2022 9:57 PM Note Text: RN page regarding patient wanting to have a BM. Lactulose and senna docusate Rx'ed. [facility] Progress note 08-27-2022 Note Date & Type Note Facility 08-27-2022 Note HNO ID: [id number] Author: Demetris Rothman MD Service: Hospital Medicine Author Type: Physician Type: Progress Notes Filed: 08/27/2022 3:39 PM Note Text: DEPARTMENT OF HOSPITAL MEDICINE PROGRESS NOTE SERVICE DATE: 08/27/2022 SERVICE TIME: 3:34 PM Hospital Medicine/Primary Attending: Demetris Rothman MD NIGHT AND WEEKEND COVERAGE: [employer] COVERAGE: Days: [phone], please page attending physician. Nights: [phone], please page [facility] Night coverage pager [phone]. Subjective INTERVAL HPI: Patient seen and evaluated at bedside. Nonspecific symptoms including headache, dizziness, numbness and tingling of the left side stable. Still has some chest discomfort. Did not have any issues overnight. Current Facility-Administered Medications Medication Dose Route Frequency acetaminophen 650 mg tab(s) (TYLENOL) 650 mg ORAL q 6 H PRN NaCl 0.9% iv flush bag 20 mL INTRAVENOUS PRN cephALEXin 500 mg cap(s) (KEFLEX) 500 mg ORAL q 8 H traZODone 50 mg tab(s) (DESYREL) 50 mg ORAL AT BEDTIME atorvastatin 40 mg tab(s) (LIPITOR) 40 mg ORAL DAILY sodium chloride 0.9 % (flush) 2-10 mL (BD POSIFLUSH) 2-10 mL INTRAVENOUS DIRECTED PRN And perflutren lipid microspheres 1.1 mg/mL 1.3 mL injection (DEFINITY) 1.3 mL INTRAVENOUS DIRECTED PRN polyethylene glycol 3350 17 g packet (MIRALAX, GLYCOLAX) 17 g ORAL DAILY aspirin 81 mg chewable tab(s) 81 mg ORAL DAILY Objective PHYSICAL EXAM: BP 128/83 Pulse 118 Temp (Src) 98.2 (Oral) Resp 16 Ht 5' 2 (1.58m) Wt 137 lb 12.6 oz (62.5kg) SpO2 99% BMI 25.20 kg/(m2). O2 Therapy: Room Air Physical Exam Performed General: No distress, alert and oriented x3, Cardiac: S1 plus S2 regular rate and rhythm, no murmurs rubs or gallops Respiratory: No wheeze or crackles appreciated, equal air entry bilaterally GI/: Abdomen soft, nontender, bowel sounds audible Skin: No rashes or ulcers present Lines, Drains, and Airways Line Duration Peripheral Admission to Hospital Short Right Antecubital 20 Gauge -- days DATA: Diagnostic tests reviewed for today's visit: LABS Recent Labs 08/27/22 0610 CO2 25 No results for input(s): GLUCOSEPOC, GLB, POTASSIUM, KWBB, SODIUMPOC, NAB, CHLORIDEPOC, IONIZEDCA, ICAL, ICAPHCOR in the last 720 hours. Recent Labs 08/27/22 0610 08/26/22 0032 WBC 4.40 6.42 RBC 3.87* 4.13 HB 11.6 12.7 HCT 34.2* 36.4 MCV 88.4 88.1 MCH 30.0 30.8 MCHC 33.9 34.9 PLT 355 309 MPV 8.3* 8.1* NEUTP -- 68.6 ABSNEUT -- 4.41 LYMPHP -- 21.7 ABSLYMPH -- 1.39 MONOP -- 8.4 ABSMONO -- 0.54 EOSINP -- 0.6 ABSEOSIN -- 0.04 BASOP -- 0.5 ABSBASO -- 0.03 IMMGRAN -- 0.2 ABNRBC <0.01 -- DTYPE -- Auto Recent Labs 08/27/22 0610 08/26/22 2211 08/26/22 1515 08/26/22 0745 08/26/22 0032 NA 134* 134* 135* -- 125* K 4.4 -- -- -- 4.1 CHLOR 101 -- -- -- 89* CO2 25 -- -- -- 23 ANION 8* -- -- -- 13 BUN 8 -- -- -- 12 CREAT 0.88 -- -- -- 1.09* EGFROTH 68 -- -- -- 52* GLUC 96 -- -- -- 122* CA 8.9 -- -- -- 8.7 MG -- -- -- 2.2 -- TPROT -- -- -- 5.8* -- ALB -- -- -- 3.7* -- ALKPHOS -- -- -- 40 -- TBILI -- -- -- 0.3 -- AST -- -- -- 16 -- ALT -- -- -- 14 -- Estimated Creatinine Clearance: 46.6 mL/min (based on SCr of 0.88 mg/dL). Recent Labs 08/26/22 0745 08/26/22 0649 OSM 275 -- UNAR -- 23 No results for input(s): CRP, ESR, WSR, LD, KYM, TIBC, FE, SAT, APTT, PTSEC, INR, ANTITHROMBIN, DDMRQT in the last 720 hours. Recent Labs 08/26/22 1515 CHOL 171 HDL 85 LDL 74 TG 60 Recent Labs 08/26/22 0745 08/26/22 0339 08/26/22 0129 08/26/22 0032 HSTNT -- 12* 12* 12* PBNP 258 -- -- -- Recent Labs 08/26/22 0649 08/26/22 0132 COLOR Yellow Yellow CLARITY Clear Clear UPH 6.0 6.0 SPGR <=1.005* <=1.005* UGLUC Negative Negative UKET Negative Negative UPROT Negative Negative UHB Negative Trace* UBILI Negative Negative UROBILINOGEN 0.2 EU/dL 0.2 EU/dL URBC -- 0-3 /HPF NITRITES Negative Negative LEUKEST Negative Trace* UWBC -- 0-5 /HPF UBACTERIA -- Rare* UEPI -- Few No results for input(s): VANCORA in the last 720 hours. Recent Labs 08/26/22 0649 UOXYC Negative UPCP Negative UBENZ Negative UCOC2 Negative UAMPH Negative UTHC Negative UOPI Negative UBARB2 Negative UETOH <11 No results for input(s): CSFAPP, CCOLR, XANTHO, CSVOLM, VIALID, CRBC, CWBC, CSFSE, CSFLY, CMONO, CSFPROT, CSFGLUC, TUBENO, CCOLR, CCLAR, SCCOLR, SCCLAR, CRBC, CWBC, CDFTTL, CNEUT, CLYMP, CMONO, CMACRO, COTHCL, CSFPROT, CSFGLUC, CSFSR, CSFSTF in the last 720 hours. No results for input(s): SPECTYPE, TERE, BFSITE, BFCOL, BFCLR, BFSCOL, BFSCLR, BFRBC, BFWBC, FTPH, FPH, BFPROT, BFGLUC, LDH, BFDFTT, BFNEUT, BFSEG, BFLYMP, BFMONO, BFEOSN, BFMACR, BFINT, PATHC, BFOTHR in the last 720 hours. No results for input(s): SFTYPE, [id number], SFWBC, SFNEUT, SFLYMP, SFMONO, URSEI, CPSEI in the last 720 hours. Vitamin B12 1618 06/18/2006 Folate >18.0 11 (more content not included)... [facility] Progress note 08-26-2022 Note Date & Type Note Facility 08-26-2022 Note HNO ID: [id number] Author: Demetris Rothman MD Service: Hospital Medicine Author Type: Physician Type: Progress Notes Filed: 08/26/2022 4:30 PM Note Text: DEPARTMENT OF HOSPITAL MEDICINE PROGRESS NOTE SERVICE DATE: 08/26/2022 SERVICE TIME: 4:25 PM Hospital Medicine/Primary Attending: Demetris Rothman MD NIGHT AND WEEKEND COVERAGE: [employer] COVERAGE: Days: [phone], please page attending physician. Nights: [phone], please page [facility] Night coverage pager [phone]. Subjective INTERVAL HPI: Patient seen and evaluated at bedside. Complaining of multiple nonspecific symptoms including headache, dizziness, numbness and tingling of the left side, chest discomfort, generalized weakness, malaise and fatigue. Did not have any issues overnight. Current Facility-Administered Medications Medication Dose Route Frequency acetaminophen 650 mg tab(s) (TYLENOL) 650 mg ORAL q 6 H PRN NaCl 0.9% iv flush bag 20 mL INTRAVENOUS PRN cephALEXin 500 mg cap(s) (KEFLEX) 500 mg ORAL q 8 H traZODone 50 mg tab(s) (DESYREL) 50 mg ORAL AT BEDTIME atorvastatin 40 mg tab(s) (LIPITOR) 40 mg ORAL DAILY sodium chloride 0.9 % (flush) 2-10 mL (BD POSIFLUSH) 2-10 mL INTRAVENOUS DIRECTED PRN And perflutren lipid microspheres 1.1 mg/mL 1.3 mL injection (DEFINITY) 1.3 mL INTRAVENOUS DIRECTED PRN Objective PHYSICAL EXAM: BP 133/61 Pulse 84 Temp (Src) 97.7 (Oral) Resp 16 Ht 5' 2 (1.58m) Wt 137 lb 12.6 oz (62.5kg) SpO2 98% BMI 25.20 kg/(m2). O2 Therapy: Room Air Physical Exam Performed General: No distress, alert and oriented x3, Cardiac: S1 plus S2 regular rate and rhythm, no murmurs rubs or gallops Respiratory: No wheeze or crackles appreciated, equal air entry bilaterally GI/: Abdomen soft, nontender, bowel sounds audible Skin: No rashes or ulcers present Lines, Drains, and Airways Line Duration Peripheral Admission to Hospital Short Right Antecubital 20 Gauge -- days DATA: Diagnostic tests reviewed for today's visit: LABS Recent Labs 08/26/22 0032 CO2 23 No results for input(s): GLUCOSEPOC, GLB, POTASSIUM, KWBB, SODIUMPOC, NAB, CHLORIDEPOC, IONIZEDCA, ICAL, ICAPHCOR in the last 720 hours. Recent Labs 08/26/22 0032 WBC 6.42 RBC 4.13 HB 12.7 HCT 36.4 MCV 88.1 MCH 30.8 MCHC 34.9 PLT 309 MPV 8.1* NEUTP 68.6 ABSNEUT 4.41 LYMPHP 21.7 ABSLYMPH 1.39 MONOP 8.4 ABSMONO 0.54 EOSINP 0.6 ABSEOSIN 0.04 BASOP 0.5 ABSBASO 0.03 IMMGRAN 0.2 DTYPE Auto Recent Labs 08/26/22 1515 08/26/22 0745 08/26/22 0032 NA 135* -- 125* K -- -- 4.1 CHLOR -- -- 89* CO2 -- -- 23 ANION -- -- 13 BUN -- -- 12 CREAT -- -- 1.09* EGFROTH -- -- 52* GLUC -- -- 122* CA -- -- 8.7 MG -- 2.2 -- TPROT -- 5.8* -- ALB -- 3.7* -- ALKPHOS -- 40 -- TBILI -- 0.3 -- AST -- 16 -- ALT -- 14 -- Estimated Creatinine Clearance: 37.6 mL/min (A) (based on SCr of 1.09 mg/dL (H)). Recent Labs 08/26/22 0745 08/26/22 0649 OSM 275 -- UNAR -- 23 No results for input(s): CRP, ESR, WSR, LD, KYM, TIBC, FE, SAT, APTT, PTSEC, INR, ANTITHROMBIN, DDMRQT in the last 720 hours. No results for input(s): HBA1C, CHOL, HDL, LDL, TG, PREALB, KYM, TIBC, FE, SAT, HBA1C, TSHREFL, FREET3, FREET4 in the last 720 hours. Recent Labs 08/26/22 0745 08/26/22 0339 08/26/22 0129 08/26/22 0032 HSTNT -- 12* 12* 12* PBNP 258 -- -- -- Recent Labs 08/26/22 0649 08/26/22 0132 COLOR Yellow Yellow CLARITY Clear Clear UPH 6.0 6.0 SPGR <=1.005* <=1.005* UGLUC Negative Negative UKET Negative Negative UPROT Negative Negative UHB Negative Trace* UBILI Negative Negative UROBILINOGEN 0.2 EU/dL 0.2 EU/dL URBC -- 0-3 /HPF NITRITES Negative Negative LEUKEST Negative Trace* UWBC -- 0-5 /HPF UBACTERIA -- Rare* UEPI -- Few No results for input(s): VANCORA in the last 720 hours. Recent Labs 08/26/22 0649 UOXYC Negative UPCP Negative UBENZ Negative UCOC2 Negative UAMPH Negative UTHC Negative UOPI Negative UBARB2 Negative UETOH <11 No results for input(s): CSFAPP, CCOLR, XANTHO, CSVOLM, VIALID, CRBC, CWBC, CSFSE, CSFLY, CMONO, CSFPROT, CSFGLUC, TUBENO, CCOLR, CCLAR, SCCOLR, SCCLAR, CRBC, CWBC, CDFTTL, CNEUT, CLYMP, CMONO, CMACRO, COTHCL, CSFPROT, CSFGLUC, CSFSR, CSFSTF in the last 720 hours. No results for input(s): SPECTYPE, TERE, BFSITE, BFCOL, BFCLR, BFSCOL, BFSCLR, BFRBC, BFWBC, FTPH, FPH, BFPROT, BFGLUC, LDH, BFDFTT, BFNEUT, BFSEG, BFLYMP, BFMONO, BFEOSN, BFMACR, BFINT, PATHC, BFOTHR in the last 720 hours. No results for input(s): SFTYPE, [id number], SFWBC, SFNEUT, SFLYMP, SFMONO, URSEI, CPSEI in the last 720 hours. Vitamin B12 1618 06/18/2006 Folate >18.0 06/18/2006 Vitamin D 25 Hydroxy 32.5 10/08/2020 ABNORMAL MICROBIOLOGY Positive Micro-30 Days No results found for the last 720 hours. No results found for: BLSP, BLCUL Invalid input(s): AGSTREPT Assessment/Plan Problem List Other chest pa (more content not included)... [facility] Progress note 08-21-2021 Note Date & Type Note Facility 08-21-2021 Note HNO ID: [id number] Author: Colleen Ace MA Service: ? Author Type: Electric Arc Furnace Operator Type: Progress Notes Filed: 08/21/2021 3:04 PM Note Text: POPULATION HEALTH NAVIGATION OUTREACH Action/FYI Received VM response from patient asking for return call wanting to know what my call was in regards to. Contacted pt, updated PCP with Dr Chelsi Burton. Enclosed encounter. Pt identified by name and : YES Outreach Outcome/Action Spoke to patient or caregiver: PCP confirmed / updated Patient declined PCP field updated Reason for Outreach Attribution: Provider Off-boarding Colleen Ace MA August 21, 2021 3:01 PM [facility] Progress note 08-19-2021 Note Date & Type Note Facility 08-19-2021 Note HNO ID: [id number] Author: Colleen Ace MA Service: ? Author Type: Electric Arc Furnace Operator Type: Progress Notes Filed: 08/19/2021 4:22 PM Note Text: POPULATION HEALTH NAVIGATION OUTREACH Action/FYI PCP OFF BOARDING OUTREACH Attempt # 1 LMOVM No Mychart. Encounter closed. Pt identified by name and : NO Outreach Outcome/Action Unable to reach patient: Left message Reason for Outreach Attribution: Provider Off-boarding Payer: Payor: O MEDICARE / Plan: [employer] HMO / Product Type: HMO / Care Gap Reviewed:: Annual Wellness visit Flu vaccine Reminder: Reminder note to check Health Maintenance for items below Health Maintenance items due: DTAP,TDAP,TD(2 - Tdap) due on 11/04/2015 COVID-19 VACCINE(3 - Booster for Pfizer series) due on 03/25/2021 INFLUENZA(1) due on 03/26/2021 Message Sent to Practice: NO Navigation Signature: Colleen Ace MA August 19, 2021 4:20 PM [facility] Clinical Note 08-18-2021 Note Date & Type Note Facility 08-18-2021 Note Patient Outreach (NE TNAV) ARLENE MCMANUS ([id number]) 1945 F Date Time Provider Department 08/18/21 COLLEEN ACE During your visit today, we recorded the following information about you: Colleen Ace MA 08/19/2021 4:22 PM Signed POPULATION HEALTH NAVIGATION OUTREACH Action/FYI PCP OFF BOARDING OUTREACH Attempt # 1 LMOVM No Mychart. Encounter closed. Pt identified by name and : NO Outreach Outcome/Action Unable to reach patient: Left message Reason for Outreach Attribution: Provider Off-boarding Payer: Payor: O MEDICARE / Plan: [facility] [employer] HMO / Product Type: HMO / Care Gap Reviewed:: Annual Wellness visit Flu vaccine Reminder: Reminder note to check Health Maintenance for items below Health Maintenance items due: DTAP,TDAP,TD(2 - Tdap) due on 11/04/2015 COVID-19 VACCINE(3 - Booster for Pfizer series) due on 03/25/2021 INFLUENZA(1) due on 03/26/2021 Message Sent to Practice: NO Navigation Signature: Colleen Ace MA August 19, 2021 4:20 PM Colleen Ace MA 08/21/2021 3:04 PM Signed POPULATION HEALTH NAVIGATION OUTREACH Action/FYI Received VM response from patient asking for return call wanting to know what my call was in regards to. Contacted pt, updated PCP with Dr Chelsi Burton. Enclosed encounter. Pt identified by name and : YES Outreach Outcome/Action Spoke to patient or caregiver: PCP confirmed / updated Patient declined PCP field updated Reason for Outreach Attribution: Provider Off-boarding Colleen Ace MA August 21, 2021 3:01 PM Allergies As of Date: 08/18/2021 Noted Allergy Reaction ADHESIVE TAPE (ROSINS) 07/21/2005 CODEINE 03/18/2005 8 - GI Upset ERYTHROMYCIN 06/09/2007 8 - GI Upset NIASPAN (NIACIN) 11/19/2010 14 - Other: See Comments Comments: myalgia Date Reviewed: 10/28/2020 Reviewed by: Fatoumata ([facility]) ROBIN Lucio - Fully Assessed Reason for Visit: Population Health Navigation Outreach [3910] Cmt: Offboarding - Dr Mychal VIZCARRA Prescriptions as of 08/21/2021 - traZODone (DESYREL) 50 mg tablet Take 1 tablet by mouth daily at bedtime. - amLODIPine-benazepril (LOTREL) 5-20 mg per capsule Take 1 capsule by mouth once daily. - atorvastatin (LIPITOR) 40 mg tablet Take 1 tablet by mouth once daily. - cholecalciferol (VITAMIN D-3) 50 mcg (2,000 unit) tablet Take 1 tablet by mouth once daily. - glucosamine/chondr julian A sod (OSTEO BI-FLEX ORAL) Take by mouth once daily. - loratadine (CLARITIN) 10 mg tablet Take 1 tablet by mouth once daily. - Cinnamon Bark (CINNAMON) 500 mg cap Take 1,000 mg by mouth twice daily. - Coenzyme Q10 (COQ-10) 100 mg ORAL Cap Take one(1) tablet twice daily - ascorbic acid (VITAMIN C) 500 mg ORAL tablet Take one(1) tablet twice daily - COMPOUNDED PRESCRIPTION MSN for joints - takes 4 four tablets daily - calcium carbonate/vitamin d3(CALCIUM 600 + D(3) 600 MG (1,500)-200 UNIT TAB) Take one(1) tablet two(2) times daily. - FOLIC ACID 400 MCG TAB Take one(1) tablet daily. - MULTI-VITAMIN ORAL TAB Take one(1) tablet daily. Problem List As Of Date 08/18/2021 Noted Resolved BENIGN HYPERTENSION [I10] PERS HX COLONIC POLYPS [Z86.010] DIFFUS CYSTIC MASTOPATHY [N60.19] 06/18/2006 Sprain of ankle, unspecified site [S93.409A] 11/07/2008 01/08/2014 Osteoporosis [M81.0] 12/13/2008 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] 11/19/2010 Hyperparathyroidism (HCC) [E21.3] 11/20/2010 01/08/2014 SI (sacroiliac) joint dysfunction [M53.3] 12/27/2013 Irritable bowel syndrome [K58.9] 01/08/2014 Thoracic or lumbosacral neuritis or radiculitis*04/17/2014 11/07/2015 Statin intolerance [Z78.9] 11/29/2014 Insomnia secondary to depression with anxiety [*10/28/2020 Situational depression [F43.21] 10/28/2020 Encounter Status:Closed by COLLEEN ACE on 08/19/21 [facility] Progress note 11-05-2020 Note Date & Type Note Facility 11-05-2020 Note HNO ID: [id number] Author: Torie (Rt) RT Danie(R) Service: ? Author Type: Stoker Installer Type: Progress Notes Filed: 11/05/2020 9:06 AM Note Text: Radiology Service Progress Note PATIENT NAME: Arlene Mcmanus DATE OF SERVICE: November 05, 2020 TIME: 9:06 AM PATIENT IDENTITY VERIFICATION COMPLETED USING TWO (2) IDENTIFIERS: Name and Date of confirmed by patient verbally. FALL SCREENING: Has the patient had 2 falls in the last year or 1 fall with injury or currently using an Ambulatory Assistive Device (Walker, Cane, Wheelchair, Crutches, etc.)? No PATIENT GENDER DATA: Female. status: : No status: NO. PATIENT RELEVANT IMPLANT DATA REVIEWED: Not Applicable RADIOLOGY DEPARTMENT: Mammography PERIPHERAL IV DATA: Not applicable SIGNED BY: RT Dinorah November 05, 2020 9:06 AM [facility] Progress note 10-28-2020 Note Date & Type Note Facility 10-28-2020 Note HNO ID: [id number] Author: Eros Horta III Service: ? Author Type: Physician Type: Progress Notes Filed: 10/28/2020 5:13 PM Note Text: SUBJECTIVE: Chief Complaint: Arlene Mcmanus is a 75 year old female who presents for a comprehensive problem evaluation. New concerns today include 1. stress over up-coming move 2. .osteoporosis--she has been on Fosamax now for 5 years. We discussed that she may safely get off of the medication and recheck bone density. She does note that she has lost 3 inches of height from her peak height. No back pain or history of fracture. 3. LS degenerative arthritis with pain in legs and feet awaken her 4. Anxiety associated with insomnia. She sometimes only sleeps 2 to 3 hours at a night. Exercises regularly - Minimal exercise associated with work or ADL's Mammogram is due - No Last mammogram was 02/09/2020 Diet is adequate for calcium intake - Yes DEXA is due - No Last DEXA was done 04/05/2019 Colon cancer screening is up to date - No Last Colonoscopy was done 02/28/2013, 10 year plan Cholesterol screening is up to date - Yes Living Will/DPOAHC - Current Outpatient Medications on File Prior to Visit Medication Sig - cholecalciferol (VITAMIN D-3) 50 mcg (2,000 unit) tablet Take 1 tablet by mouth once daily. - alendronate (FOSAMAX) 70 mg tablet TAKE 1 TABLET ONCE A WEEK, WITH A FULL GLASS OF WATER ON EMPTY STOMACH - amLODIPine-benazepril (LOTREL) 5-20 mg per capsule Take 1 capsule by mouth once daily. - glucosamine/chondr julian A sod (OSTEO BI-FLEX ORAL) Take by mouth once daily. - loratadine (CLARITIN) 10 mg tablet Take 1 tablet by mouth once daily. - Cinnamon Bark (CINNAMON) 500 mg cap Take 1,000 mg by mouth twice daily. - Coenzyme Q10 (COQ-10) 100 mg ORAL Cap Take one(1) tablet twice daily - ascorbic acid (VITAMIN C) 500 mg ORAL tablet Take one(1) tablet twice daily - COMPOUNDED PRESCRIPTION MSN for joints - takes 4 four tablets daily - calcium carbonate/vitamin d3(CALCIUM 600 + D(3) 600 MG (1,500)-200 UNIT TAB) Take one(1) tablet two(2) times daily. - FOLIC ACID 400 MCG TAB Take one(1) tablet daily. - MULTI-VITAMIN ORAL TAB Take one(1) tablet daily. No current facility-administered medications on file prior to visit. PAST MEDICAL HISTORY Diagnosis Date - Disorder of bone and cartilage, unspecified - Diverticulosis of colon (without mention of hemorrhage) Diverticulosis - Essential hypertension, benign - Hypercalcemia 07/25/2010 - Hyperlipidemia LDL goal < 130 01/31/2010 - Hyperparathyroidism (HCC) 11/20/2010 - Lumbar and sacral osteoarthritis 07/23/2010 - Lumbar disc disorder with myelopathy 11/19/2010 - Personal history of colonic polyps Colon polyps - Pure hypercholesterolemia - Sciatica 01/31/2010 MENSTRUAL HISTORY PERIOD REGULARITY: FLOW CHARACTERISTICS: DYSMENORRHEA: CYCLIC SYMPTOMS: HORMONE REPLACEMENT: PAST SURGICAL HISTORY Procedure Laterality Date - COLONOSCOP W/ OR W/O [facility] SPEC 05-08-02 Colonoscopy-repeat in - COLONOSCOP W/ OR W/O [facility] SPEC 02/28/2013 Colonoscopy - CORRECT BUNION,SIMPLE Bunion right foot - EGD W/O OR W/BRUSH/WASH EGD - EXPLORE PARATHYROID GLANDS 04-22-12 left FAMILY HISTORY Problem Relation Age of Onset - Heart Maternal Grandfather - other (ATHEROSCLEROSIS [Other]) Mother - other (COLONIC POLYPS [Other]) Mother - Heart Father - Emphysema Mother - Heart Mother - Hypertension Mother - Hypertension Father - other (dementia [Other]) Sister - Diabetes Brother Social History Tobacco Use - Smoking status: Never Smoker - Smokeless tobacco: Never Used Substance Use Topics - Alcohol use: Yes Comment: Rarely - Drug use: No Immunization History Administered Date(s) Administered DTaP (Age<7) 11/03/2005 Influenza Seasonal - High Dose - Age 65+ 04/27/2015 04/30/2016 04/28/2018 Pneumococcal-13 Vac Conjugate 11/29/2014 Pneumovax 10/21/2012 Zostavax 11/19/2010 influenza, high-dose, quadrivalent vaccine (FLUZONE HIGH DOSE QUADRIVALENT) 04/05/2020 ACTIVE PROBLEM LIST Essential Hypertension, Benign Personal History of Colonic Polyps Diffuse Cystic Mastopathy Osteoporosis Hyperlipidemia With Target Ldl Less Than 130 Sciatica Lumbar and Sacral Osteoarthritis Lumbar Disc Disorder With Myelopathy Si (Sacroiliac) Joint Dysfunction Irritable Bowel Syndrome Statin Intolerance REVIEW OF SYSTEMS: GENERAL:Denies fever, chills, night sweats, or changes in weight. DERMATOLOGIC: EYES: ENT: RESPIRATORY: Denies any cough, dyspnea, or wheezing. CARDIOVASCULAR: Denies any chest pain with exertion or at rest, palpitations, syncope, or edema. BREASTS: GASTROINTESTINAL: Denies any nausea, vomiting, abdominal pain, heartburn, changes in bowel habit, Denies any rectal bleeding. GENITOURINARY: Infrequent stress fecal and urinary incontinence. No rectal bleeding MUSCULOSKELETAL: Denies any joint swelling, crepitus, joint pain, or (more content not included)... [facility] Clinical Note 09-17-2020 Note Date & Type Note Facility 09-17-2020 Note Patient Outreach (CO VAMN) ARLENE MCMANUS ([id number]) 1945 F Date Time Provider Department 09/17/20 NURIA DRAPER During your visit today, we recorded the following information about you: Allergies As of Date: 09/17/2020 Noted Allergy Reaction ADHESIVE TAPE (ROSINS) 07/21/2005 CODEINE 03/18/2005 8 - GI Upset ERYTHROMYCIN 06/09/2007 8 - GI Upset NIASPAN (NIACIN) 11/19/2010 14 - Other: See Comments Comments: myalgia Date Reviewed: 04/05/2020 Reviewed by: Tonya Sloan (Joey) JOEY [place] - Fully Assessed Order(s):SARS-COVID VACCINE 1ST DOSE APPT [[id number]] Order #: [id number] FUTURE Prescriptions as of 09/17/2020 Sig: ALENDRONATE 70 MG TABLET TAKE 1 TABLET ONCE A WEEK, WI* AMLODIPINE 5 MG-BENAZEPRIL 20* Take 1 capsule by mouth once * CHOLECALCIFEROL (VITAMIN D3) * Take 1,000 Units by mouth onc* OSTEO BI-FLEX ORAL Take by mouth once daily. LORATADINE 10 MG TABLET Take 1 tablet by mouth once d* * CINNAMON BARK 500 MG CAPSULE Take 1,000 mg by mouth twice * * COENZYME Q10 100 MG CAPSULE Take one(1) tablet twice daily * ASCORBIC ACID (VITAMIN C) 500* Take one(1) tablet twice daily * COMPOUNDED PRESCRIPTION MSN for joints - takes 4 four* * CALCIUM 600 + D(3) 600 MG (1,* Take one(1) tablet two(2) ely* * FOLIC ACID 400 MCG TABLET Take one(1) tablet daily. * MULTI-VITAMIN TABLET Take one(1) tablet daily. Problem List As Of Date 09/17/2020 Noted Resolved BENIGN HYPERTENSION [I10] PERS HX COLONIC POLYPS [Z86.010] More... More... DIFFUS CYSTIC MASTOPATHY [N60.19] 06/18/2006 Sprain of ankle, unspecified site [S93.409A] 11/07/2008 01/08/2014 Osteoporosis [M81.0] 12/13/2008 More... 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] 11/19/2010 Hyperparathyroidism (HCC) [E21.3] 11/20/2010 01/08/2014 SI (sacroiliac) joint dysfunction [M53.3] 12/27/2013 Irritable bowel syndrome [K58.9] 01/08/2014 Thoracic or lumbosacral neuritis or radiculitis*04/17/2014 11/07/2015 Statin intolerance [Z78.9] 11/29/2014 Letter Text Encounter Status:Closed by CHAPO [employer] on 09/20/20 [facility] Summary Purpose Family History No Family History Records FoundNo Family History Records FoundNo Family History Records FoundNo Family History Records Found Advance Directives No Advanced Directives Records FoundNo Advanced Directives Records FoundNo Advanced Directives Records FoundNo Advanced Directives Records Found Additional Source Comments INFORMATION SOURCE (unrecogn ized section and content) DATE CREATED AUTHOR AUTHOR'S ORGANIZ ATION 08/30/2021 [facility] DATE CREATED AUTHOR AUTHOR'S ORGANIZ ATION 08/27/2022 [facility] DATE CREATED AUTHOR AUTHOR'S ORGANIZ ATION 09/01/2022 [facility] FOR RECORDS PERTAINING TO PATIENTS WHO ARE OR HAVE BEEN ENROLLED IN A CHEMICAL DEPENDENCY/SUBSTANCEABUSE PROGRAM, SOME INFORMATION MAY BE OMITTED. This clinical summary was aggregated from multiple sources. Caution should be exercised in using it in the provision of clinical care. This summary normalizes information from multiple sources, and as a consequence, information in this document may materially change the coding, format and clinical context of patient data. In addition, data may be omitted in some cases. CLINICAL DECISIONS SHOULD BE BASED ON THE PRIMARY CLINICAL RECORDS. [employer] [facility]. provides no warranty or guarantee of the accuracy or completeness of information in this document.
[2023-07-23 12:24] LABS: Ionized Calcium 5.47 mg/dL (4.36-5.20)
[2023-07-23 13:02] LABS: PTHIN 13.5 pg/mL (18.4-80.1)
[2023-07-23 13:34] LABS: Anion Gap 2 (5-15); BUN 15 mg/dL (7-18); BUN/Creat Ratio 12.5 RATIO (10-20); Calcium,Total 10.4 mg/dL (8.5-10.1); Chloride 100 mmol/L (98-107); EST Glomerular Filtration Rate 46 mL/min (>60); Est Glom Filt Rate - Afr Amer 56 mL/min (>60); Glucose 95 mg/dL (74-106); Sodium Level 136 mmol/L (136-145)
== END | disposition home or self-care (01) ==
PROVIDERS: PCP Internal Medicine; Referring Provider Internal Medicine; Visit Provider Internal Medicine
DX: E83.52 Hypercalcemia (principal)
CPT/HCPCS: 36415; 80048; 82330; 83970

== ENCOUNTER 2023-07-27 05:59 | Day surgery (SDC) | payer MEDICARE, SELFPAY ==
[2023-07-27] VITALS (7 sets, daily range): BP systolic 79–110; BP diastolic 50–76; PULSE 67–81; RESP 16; TEMP 36.5–37.1; O2SAT 92–97; BMI 25.0
--- OUTSIDE RECORDS SUMMARY | 2023-07-27 06:03 | XMS RPT_ITS | CCD ---
Author Name Unknown Address [address] [place] [address] Organization [facility] Care Team Providers Care Senior Pl Sql Developer Name Role Phone CHELSI BURTON Primary Care Unavailable MAYI PINTO Attending Unavaila LINH Babcock Admitting Unavailable MAYI PINTO Referring Unavaila DOUGLAS Dasilva Consulting Unavailab DEMETRIS Lucas Attending Unavailable CHELSI BURTON Primary Care Unavailable Allergies Allergy Classification Reported Allergen(s) Allergy Type Date of Onset Reaction(s) Facility (2 sources) Adhesive Tape; Translations: [ADHESIVE TAPE (ROSINS)] Propensity to adverse reactions (disorder) [facility] Repository (2 sources) Codeine; Translations: [CODEINE] Drug Allergy 5 [facility] Repository (2 sources) Erythromycin; Translations: [ERYTHROMYCIN] Drug Allergy 7 [facility] Repository (2 sources) Niacin; Translations: [NIACIN] Drug Allergy 1 [facility] Repository Problems Problem Classification Problem Date [...] Facility Start: 08-26-2022 End: 08-28-2022 ambulatory [facility] Facility:[facility] ital Start: 08-26-2022 End: 08-26-2022 Emergency department patient visit CHELSI BURTON Facility:[facility] Payers Date Payer Category Payer Unknown [id number] Plan of care note 08-27-2022 Note Date & Type Note Facility 08-27-2022 Note HNO ID: [id number] Author: Robin Ayala MD Service: Hospital Medicine Author Type: Physician Type: Plan of Care Filed: 08/27/2022 9:57 PM Note Text: RN page regarding patient wanting to have a BM. Lactulose and senna docusate Rx'ed. [facility] Progress note 08-27-2022 Note Date & Type Note Facility 08-27-2022 Note HNO ID: [id number] Author: Demetris Rothman MD Service: Hospital Medicine Author Type: Physician Type: Progress Notes Filed: 08/27/2022 3:39 PM Note Text: DEPARTMENT OF HOSPITAL MEDICINE PROGRESS NOTE SERVICE DATE: 08/27/2022 SERVICE TIME: 3:34 PM Hospital Medicine/Primary Attending: Demetris Rothman MD NIGHT AND WEEKEND COVERAGE: [employer] COVERAGE: Days: [phone], please page attending physician. Nights: [phone], please page [facility] Night coverage pager [phone]. Subjective INTERVAL HPI: Patient seen and evaluated [...] 720 hours. No results for input(s): SFTYPE, [id number], SFWBC, SFNEUT, SFLYMP, SFMONO, URSEI, CPSEI in the last 720 hours. Vitamin B12 1618 06/18/2006 Folate >18.0 11 (more content not included)... [facility] Progress note 08-26-2022 Note Date & Type Note Facility 08-26-2022 Note HNO ID: [id number] Author: Demetris Rothman MD Service: Hospital Medicine Author Type: Physician Type: Progress Notes Filed: 08/26/2022 4:30 PM Note Text: DEPARTMENT OF HOSPITAL MEDICINE PROGRESS NOTE SERVICE DATE: 08/26/2022 SERVICE TIME: 4:25 PM Hospital Medicine/Primary Attending: Demetris Rothman MD NIGHT AND WEEKEND COVERAGE: [employer]GA COVERAGE: Days: [phone], please page attending physician. Nights: [phone], please page [facility] Night coverage pager [phone]. Subjective INTERVAL HPI: Patient seen and evaluated [...] 720 hours. No results for input(s): SFTYPE, [id number], SFWBC, SFNEUT, SFLYMP, SFMONO, URSEI, CPSEI in the last 720 hours. Vitamin B12 1618 06/18/2006 Folate >18.0 06/18/2006 Vitamin D 25 Hydroxy 32.5 10/08/2020 ABNORMAL MICROBIOLOGY Positive Micro-30 Days No results found for the last 720 hours. No results found for: BLSP, BLCUL Invalid input(s): AGSTREPT Assessment/Plan Problem List Other chest pa (more content not included)... [facility] Progress note 08-21-2021 Note Date & Type Note Facility 08-21-2021 Note HNO ID: [id number] Author: Colleen Ace MA Service: ? Author Type: Supervisor Belt And Link Assembly Type: Progress Notes Filed: 08/21/2021 3:04 PM [...] Ace MA August 21, 2021 3:01 PM [facility] Progress note 08-19-2021 Note Date & Type Note Facility 08-19-2021 Note HNO ID: [id number] Author: Colleen Ace MA Service: ? Author Type: Supervisor Belt And Link Assembly Type: Progress Notes Filed: 08/19/2021 4:22 PM Note Text: POPULATION HEALTH NAVIGATION OUTREACH Action/FYI PCP OFF BOARDING OUTREACH Attempt # 1 LMOVM No Mychart. Encounter closed. Pt identified by name and : NO Outreach Outcome/Action Unable to reach patient: Left message Reason for Outreach Attribution: Provider Off-boarding Payer: Payor: O MEDICARE / Plan: [employer] HMO / Product Type: HMO / Care Gap Reviewed:: Annual Wellness visit Flu vaccine Reminder: Reminder note to check Health Maintenance for items below Health Maintenance items due: DTAP,TDAP,TD(2 - Tdap) due on 11/04/2015 COVID-19 VACCINE(3 - Booster for Pfizer series) due on 03/25/2021 INFLUENZA(1) due on 03/26/2021 Message Sent to Practice: NO Navigation Signature: Colleen Ace MA August 19, 2021 4:20 PM [facility] Clinical Note 08-18-2021 Note Date & Type Note Facility 08-18-2021 Note Patient Outreach (NE TNAV) ARLENE MCMANUS ([id number]) 1945 F Date Time Provider Department 08/18/21 [...] Off-boarding Payer: Payor: O MEDICARE / Plan[place] [facility] [place] [employer] / Product Type: HMO / Care [...] myalgia Date Reviewed: 10/28/2020 Reviewed by: Fatoumata ([facility]) ROBIN Lucio - Fully Assessed Reason for [...] Encounter Status:Closed by COLLEEN ACE on 08/19/21 [facility] Progress note 11-05-2020 Note Date & Type Note Facility 11-05-2020 Note HNO ID: [id number] Author: Torie (Rt) RT Danie(R) Service: ? Author Type: Die Trouble Shooter Type: Progress Notes Filed: 11/05/2020 9:06 AM [...] RT Dinorah November 05, 2020 9:06 AM [facility] Progress note 10-28-2020 Note Date & Type Note Facility 10-28-2020 Note HNO ID: [id number] Author: Eros Horta III Service: ? Author [...] Laterality Date - COLONOSCOP W/ OR W/O [facility] SPEC 05-08-02 Colonoscopy-repeat in - COLONOSCOP W/ OR W/O [facility] SPEC 02/28/2013 Colonoscopy - CORRECT BUNION,SIMPLE Bunion [...] joint pain, or (more content not included)... [facility] Clinical Note 09-17-2020 Note Date & Type Note Facility 09-17-2020 Note Patient Outreach (CO VAMN) ARLENE MCMANUS ([id number]) 1945 F Date Time Provider Department 09/17/20 [...] Fully Assessed Order(s):SARS-COVID VACCINE 1ST DOSE APPT [[id number]] Order #: [id number] FUTURE Prescriptions as of 09/17/2020 Sig: ALENDRONATE [...] 11/29/2014 Letter Text Encounter Status:Closed by CHAPO [employer] on 09/20/20 [facility] Summary Purpose Family History No Family History Records FoundNo Family History Records FoundNo Family History Records FoundNo Family History Records Found Advance Directives No Advanced Directives Records FoundNo Advanced Directives Records FoundNo Advanced Directives Records FoundNo Advanced Directives Records Found Additional Source Comments INFORMATION SOURCE (unrecogn ized section and content) DATE CREATED AUTHOR AUTHOR'S ORGANIZ ATION 08/30/2021 [facility] DATE CREATED AUTHOR AUTHOR'S ORGANIZ ATION 08/27/2022 [facility] DATE CREATED AUTHOR AUTHOR'S ORGANIZ ATION 09/01/2022 [facility] FOR RECORDS PERTAINING TO PATIENTS WHO [...] BE BASED ON THE PRIMARY CLINICAL RECORDS. [facility]. provides no warranty or guarantee of the accuracy or completeness of information in this document.
--- NOTE | 2023-07-27 06:07 | PCM.HP.BLA ---
History and Physical Date of Admission: 07/27/23 Visit Reasons: Gastroesophageal reflux disease (GERD) Chief Complaint: GERD Clay Preparation Supervisor Required: No Is patient in pain?: No Allergies adhesive tape Allergy (Unknown, Verified 07/09/23 14:45) unknownniacin [From Niaspan Extended-Release] Allergy (Unknown, Verified 07/09/23 14:45) myalgiaserythromycin base [From Staticin] Allergy (Verified 07/09/23 14:45) Otherethyl alcohol [From Staticin] Allergy (Verified 07/09/23 14:45) Othercodeine Adverse Reaction (Mild, Verified 07/09/23 14:45) Vomiting Medications cinnamon bark 500 mg capsule 1,000 mg PO DAILY GENERAL HEALTH 04/28/18 [History Confirmed 07/09/23] multivitamin (Daily Multi-Vitamin tablet) 1 tab PO DAILY 09/10/21 [History Confirmed 07/09/23] ascorbic acid (vitamin C) 500 mg capsule 500 mg PO BID GENERAL HEALTH 09/08/22 [History Confirmed 07/09/23] aspirin 81 mg tablet,delayed release (Adult Low Dose Aspirin) 81 mg PO DAILY 09/08/22 [History Confirmed 07/09/23] calcium carbonate 600 mg-vitamin D3 5 mcg (200 unit) capsule (Calcium 600 + D(3)) 1 cap PO BID 09/08/22 [History Confirmed 07/09/23] coenzyme Q10 100 mg capsule 100 mg PO DAILY 09/08/22 [History Confirmed 07/09/23] fluticasone propionate 50 mcg/actuation nasal spray,suspension 1 spray intranasal DAILY PRN 09/08/22 [History Confirmed 07/09/23] loratadine 10 mg tablet 10 mg PO DAILY 09/08/22 [History Confirmed 07/09/23] cholecalciferol (vitamin D3) 25 mcg (1,000 unit) tablet 1,000 unit PO DAILY GENERAL HEALTH 09/09/22 [History Confirmed 07/09/23] turmeric root extract 500 mg capsule 1,000 mg PO DAILY 09/09/22 [History Confirmed 07/09/23] amlodipine 5 mg-benazepril 20 mg capsule (Lotrel) 1 cap PO DAILY #90 caps 09/14/22 [Rx Confirmed 07/09/23] atorvastatin 40 mg tablet 40 mg PO DAILY #90 tabs 09/14/22 [Rx Confirmed 07/09/23] famotidine 20 mg tablet 20 mg PO DAILY PRN 03/08/23 [History Confirmed 07/09/23] pseudoephedrine HCl 30 mg tablet (Sudafed) 30 mg PO BID PRN 03/08/23 [History Confirmed 07/09/23] PFS Medical History Anxiety and depression Breast cancer screening Essential (primary) hypertension Eustachian tube dysfunction Hyperlipemia Hyponatremia IBS (irritable bowel syndrome) Insomnia Lumbar stenosis Lung nodule Near syncope Renal cyst Right ear pain Sinus pressure Surgical History History of parathyroidectomy Family History Mother Heart diseaseFather Heart diseaseOther Hypertension Social History Smoking Status: Never smoker alcohol intake: never substance use type: does not use caffeine: Yes Type: coffee Number of servings: 1 HPI HPI HPI: 78-year-old female is being referred by Dr. Aleja Ibanez for surgical consultation regarding right upper quadrant pain and a written copy of my surgical consult and recommendations will be returned to him. As noted below on July 08, 2023 she had a abdominal CT scan. That shows a moderate size hiatal hernia. Bilateral renal cysts are noted. Consider bilateral renal ultrasound for cyst. I have personally reviewed the images. it is of note that the patient has significant anxiety issues. States that she is here to discuss her reflux symptoms. She has escalating heartburn symptoms. She is not benefited from the use of famotidine and she was intolerant to use of Protonix. Laboratory as of June 28, 2023 shows a white count of 7.2 with a hemoglobin 12.6 Powers crit 37.1 platelet count of 308,000. As of July 08, 2023 BUN was 17 creatinine 1.15 sodium somewhat low at 131 and chloride low at 96. Glucose 116. Calcium 10.9 or is 10 days prior it had been 8.9. TSH is 0.42 July 08, 2023 STUDY: CT ABDOMEN WITH AND WITHOUT CONTRAST REASON FOR EXAM: Female, 78 years old. Right kidney mass, indeterminate RADIATION DOSAGE (If Supplied By Facility): CTDIvol = ( 9.79 ) mGy, DLP = ( 533.17 ) mGycm TECHNIQUE: Transaxial images were obtained pre and post I.V. administration of IV, and without oral contrast. Sagittal and coronal images were reconstructed. Individualized dose optimization techniques were used for this CT. COMPARISON: Comparison is made with prior study dated June 16, 2023. FINDINGS: The visualized lung bases are unremarkable. The visualized portions of the heart are within normal limits. There is hepatomegaly with diffuse hepatic enlargement. Hepatomegaly. Normal gallbladder and extrahepatic biliary system. Normal spleen. Normal pancreas. Normal bilateral adrenal glands. Multiple bilateral renal cysts. Once again, there is evidence of a 1.3 cm x 1.2 cm hyperdense nodule in the lateral midportion of the right kidney. Correlation with renal sonogram is recommended. There is a moderate-sized hiatal hernia. Normal small intestine. Normal colon. The appendix is visualized and appears normal. There is diffuse atherosclerotic calcification of the abdominal aorta and its major visceral branches, without a demonstrated aneurysm. Normal inferior vena cava. Normal retroperitoneum. Normal abdominal wall. Normal osseous structures. CT/Abdomen W/WO IV Contrast IMPRESSION: Stable examination. Correlation with ultrasound of both kidneys recommended for further evaluation ROS General General: Yes fatigue; No weight change, appetite, colon cancer, breast cancer or weakness HEENT HEENT: No difficulty swallowing, eye injury, eye surgery, swollen glands or hoarseness Endo Endocrine: No thyroid disease, diabetes mellitus, thyroid cancer, Hair loss, heat intolerance or cold intolerance Skin Skin: No rash or changing moles Breast Breast: No left breast lump, right breast lump, nipple discharge, breast pain, abnormal mammogram, abnormal US or breast enlargement Musc Musculoskeletal: Yes back problems and arthritis; No rheumatoid arthritis, gout or joint pain Cardio Cardiovascular: Yes high blood pressure; No murmur, pacemaker, heart disease, atrial fibrillation, heart attack, heart stent, palpitations, shortness of breat with exertion or chest pain Psych Psychiatric: Yes anxiety; No depression or hearing voices Resp Respiratory: No shortness of breath, No sleep apnea, No cough, No COPD, No asthma, No emphysema and No wheezing Gastro Gastrointestinal: Yes abdominal pain, Yes nausea or vomiting, Yes diarrhea, No constipation, No blood in stool, Yes acid reflux, No hemorrhoids, No ulcers, No gallbladder problem and No black,tarry stools Additional Details: History IBS Efrem Hematologic: No blood thinners, No blood disorders, No bleeding, No anemia and No blood clots Neuro Neurologic: No system reviewed and no additional complaints, except as documented, No as per HPI, No abnormal gait, No abnormal hearing, No abnormal movements, No abnormal speech, No behavioral changes, No burning sensations, No confusion, No convulsions, No disequilibrium, No dizziness, No localized weakness, No frequent falls, No headache(s), No lack of coordination, No loss of vision, No memory loss, Yes numbness, No other visual disturbances, No radicular pain, No restless legs, No sensory deficit, No syncope, Yes tingling, No tremor(s), No weakness and No other Exam Const General: cooperative, comfortable and no acute distress Nutritional Appearance: average body habitus [facility] Head: normal to inspection Resp Effort & Inspection: normal respiratory effort Auscultation: clear to auscultation bilaterally Cardio Rate: regular rate Rhythm: regular rhythm GI Other: Soft, nontender, no hepatosplenomegaly, normal bowel sounds Skin General: no rashes or lesions noted Neuro General: patient alert, patient awake and patient oriented x3 Extrem General: no calf tenderness Psych Appearance: grossly normal Assessment and Plan Assessment and Plan (1) Chronic GERD: Status: Chronic Plan: 78-year-old female with escalating reflux symptoms and known hiatal hernia. She is intolerant to pantoprazole and received no benefit from famotidine. She is able to tolerate Mylanta and does get some benefit from that so I have advised her that she can continue to use that as needed. She has a long-term history of reflux symptoms. I propose for her a esophagogastroduodenoscopy with possible biopsy or polypectomy if indicated. She is aware of technique, benefit, risk, alternatives. I think the greater challenge will be tried to manage her should any acute gastritis be identified. I have instructed her on head of bed elevation but she has a water bed frame with a mattress and it making it difficult for her to elevate. We will try to assist as possible. I appreciate the option of assisting with the surgical care. Copy: Dr. Aleja Horta M.D., F.A.C.S I have examined the patient and the H&P has been reviewed. There are no clinical changes since date of exam. Dhruv Horta M.D., F.A.C.S.
[2023-07-27] MEDS: Lactated Ringers 1,000 ML 15 ML IV (06:35)
--- NOTE | 2023-07-27 07:00 | EGD_PTH ---
PATHOLOGY RESULTS PATIENT: TITI MCMANUS LOC: EN U#:[id number] AGE/SX: 78/F ROOM: RE07/27/[address]: Dr. Dhruv Horta MD : 1945 BED: DIS: 07/27/2023 SPEC #: [id number] RECD: 07/27/23 11:36 STATUS: TARAN [place] #: [id number] ROMARIO: 07/27/23 07:[address]: Dhruv Horta DEPT: SURGICAL PATHOLOGY RECD BY: Naa Chowdary ENTERED: 07/27/23 11:36 SP TYPE: EGD BIOPSY CRISTIAN DR: Dr. Aleja Ibanez MD Tissues: Gastric mucous membrane Esophageal mucous membrane Procedures: Special Stain Group II Surgery Specimen Level IV Alcian Blue/PAS (control) HEADER OPERATION: EGD, biopsy PRE-OP DIAGNOSIS: Chronic GERD TISSUE SUBMITTED: A - Antrum biopsy for histo and H. pylori, B - EG junction biopsy MICROSCOPIC DIAGNOSIS A. Gastric antrum, biopsy: Chronic gastritis. See comment. B. Gastroesophageal junction, biopsy: Chronic inflammation. Focal mucosal ulceration with associated reactive change. No evidence of goblet cell metaplasia. See comment. AM:dayana 07/28/2023 COMMENT A. The results of immunohistochemistry for Helicobacter pylori will be reported separately ([id number]). B. Alcian blue/PAS stain with matched control supports the above diagnosis. MICROSCOPIC DESCRIPTION Slides are reviewed. GROSS DESCRIPTION A - Received in fixative is one container labeled with the patient's name and designated antrum biopsy. The specimen consists of one irregular fragment of light zamudio soft tissue that measures 0.5 x 0.3 x 0.1 cm. The specimen is totally submitted in one cassette. B - Received in fixative is one container labeled with the patient's name and designated EG junction biopsy. The specimen consists of two irregular fragments of light zamudio soft tissue that in aggregate measure 0.9 x 0.3 x 0.1 cm. The specimen is totally submitted in one cassette. / SJ:dayana 07/27/2023 TC:3 CPT: 12878 x2, 88490
--- NOTE | 2023-07-27 07:00 | IMM_PTH ---
PATHOLOGY RESULTS PATIENT: TITI MCMANUS LOC: EN U#:[id number] AGE/SX: 78/F ROOM: RE07/27/[address]: Dr. Dhruv Horta MD : 1945 BED: DIS: 07/27/2023 SPEC #: [id number] RECD: 07/27/23 12:30 STATUS: TARAN REQ #: [id number] ROMARIO: 07/27/23 07:[address]: Dhruv Horta DEPT: IMMUNOHISTOCHEMISTRY RECD BY: Bobbi Bertrand ENTERED: 07/27/23 12:31 SP TYPE: IMMUNO OTHR DR: Dr. Aleja Ibanez MD Tissues: Stomach, NOS Procedures: H Pylori (initial) PHYSICIAN & INSTITUTION [place] [address] SPECIMEN INFORMATION: Tissue Source: A - Antrum Clinical Info: Chronic GERD Specimen Number: [id number] CPT code: 52066 METHODOLOGY: Deparaffinized sections of prefer/formalin-fixed tissue or PAP/DQ stained slides are incubated with monoclonal/polyclonal antibodies/oligonucleotide probes. Localization is made via biotin free immunoperoxidase method. Appropriate controls are performed and reacted as expected. Results on target cell population are indicated in the following table: RESULTS: ANTIBODY / CLONE RESULT Block A H Pylori (polyclonal) negative These tests were developed and their performance characteristics determined by [facility]. They may not have been cleared or approved by the U.S. Food and Drug Administration. The FDA has determined that such clearance or approval is not necessary. The above immunohistochemical/dualISH markers are ordered and reviewed by the Pathologist. INTERPRETATION: A. Antrum, biopsy: Negative for Helicobacter pylori organisms. AM:dayana 07/28/2023
--- NOTE | 2023-07-27 07:37 | OP.CCLET_ITS ---
07/27/2023 Aleja Ibanez [facility] [address] [place] [address] Re : Upper GI endoscopy procedure for Arlene Metzger Dear Dr. Ibanez This procedure was performed on Thursday, July 27, 2023. My impressions and recommendations are as follows: Impressions : - LA Grade B reflux esophagitis with no bleeding. Biopsied. - 4 cm hiatal hernia. - Normal stomach. Biopsied. - Normal examined duodenum. Recommendations : - Discharge patient to home. - Resume previous diet. - Continue present medications. - Return to my office in 1 week. Consider esophageal manometry with recommendations for surgical reflux procedure. My findings are described in the full procedure note, which is enclosed. If I can be of further assistance, please feel free to contact me at Doctor phone number(s): Work: . Sincerely, Dhruv Horta MD 07/27/2023 7:36:44 AM This report has been signed electronically.
--- NOTE | 2023-07-27 07:37 | OP.EGD_ITS ---
Patient Name: Arlene Metzger Procedure Date: 07/27/2023 7:18 AM Date of : 1945 Age: 78 Procedure: Upper GI endoscopy Indications: Heartburn, Suspected gastro-esophageal reflux disease Providers: Dhruv Horta MD Referring MD: Dhruv Horta MD Medicines: See the Anesthesia note for documentation of the administered medications Complications: No immediate complications. Procedure: Pre-Anesthesia Assessment: - Prior to the procedure, a History and Physical was performed, and patient medications and allergies were reviewed. The patient's tolerance of previous anesthesia was also reviewed. The risks and benefits of the procedure and the sedation options and risks were discussed with the patient. All questions were answered, and informed consent was obtained. Prior Anticoagulants: The patient has taken no anticoagulant or antiplatelet agents. ASA Grade Assessment: II - A patient with mild systemic disease. After reviewing the risks and benefits, the patient was deemed in satisfactory condition to undergo the procedure. After obtaining informed consent, the endoscope was passed under direct vision. Throughout the procedure, the patient's blood pressure, pulse, and oxygen saturations were monitored continuously. The gastroscope was introduced through the mouth, and advanced to the second part of duodenum. The upper GI endoscopy was accomplished without difficulty. The patient tolerated the procedure well. Scope In: 7:26:11 AM Scope Out: 7:31:21 AM Total Procedure Duration Time 0 hours 5 minutes 10 seconds Findings: LA Grade B (one or more mucosal breaks greater than 5 mm, not extending between the tops of two mucosal folds) esophagitis with no bleeding was found 34 cm from the incisors. Biopsies were taken with a cold forceps for histology. A 4 cm hiatal hernia was present. The entire examined stomach was normal. Biopsies were taken with a cold forceps for histology. The examined duodenum was normal. Impression: - LA Grade B reflux esophagitis with no bleeding. Biopsied. - 4 cm hiatal hernia. - Normal stomach. Biopsied. - Normal examined duodenum. Recommendation: - Discharge patient to home. - Resume previous diet. - Continue present medications. - Return to my office in 1 week. Consider esophageal manometry with recommendations for surgical reflux procedure. Procedure Code(s): --- Professional --- 58806, Esophagogastroduodenoscopy, flexible, transoral; with biopsy, single or multiple Diagnosis Code(s): --- Professional --- K21.00, Gastro-esophageal reflux disease with esophagitis, without bleeding K44.9, Diaphragmatic hernia without obstruction or gangrene R12, Heartburn CPT copyright 2021 [employer]. All rights reserved. The codes documented in this report are preliminary and upon certified medical records coder review may be revised to meet current compliance requirements. Dhruv Horta MD 07/27/2023 7:36:44 AM This report has been signed electronically. Number of Addenda: 0 Note Initiated On: 07/27/2023 7:18 AM
== END 2023-07-27 08:23 | disposition home or self-care (01) ==
LOC: EN 06:00 → AC 06:01
PROVIDERS: PCP Internal Medicine; Referring Provider Internal Medicine; Visit Provider Surgery
PROC: 0DJ08ZZ Inspection of Upper Intestinal Tract, Via Natural or Artificial Opening Endoscopic (ICD-10-PCS; CPT 43235; principal; 2023-07-27 06:55)
DX: K21.00 Gastro-esophageal reflux disease with esophagitis, without bleeding (principal); I10 Essential (primary) hypertension; F41.9 Anxiety disorder, unspecified; E78.5 Hyperlipidemia, unspecified; K44.9 Diaphragmatic hernia without obstruction or gangrene; K29.50 Unspecified chronic gastritis without bleeding
CPT/HCPCS: 43239; 88305; 88313; 88342; J7120; J2405

== ENCOUNTER → 2023-08-10 | Outpatient (CLI) | payer MEDICARE, SELFPAY ==
[2023-08-10 13:33] LABS: Ionized Calcium 5.03 mg/dL (4.36-5.20)
[2023-08-10 13:59] LABS: Anion Gap 6 (5-15); BUN 21 mg/dL (7-18); BUN/Creat Ratio 15.9 RATIO (10-20); Calcium,Total 9.7 mg/dL (8.5-10.1); Chloride 104 mmol/L (98-107); Creatinine, Serum 1.32 mg/dL (0.55-1.02); EST Glomerular Filtration Rate 41 mL/min (>60); Est Glom Filt Rate - Afr Amer 50 mL/min (>60); Glucose 94 mg/dL (74-106); Potassium 4.7 mmol/L (3.5-5.1); Sodium Level 137 mmol/L (136-145)
== END | disposition home or self-care (01) ==
LOC: LAB 13:07
PROVIDERS: PCP Internal Medicine; Referring Provider Internal Medicine; Visit Provider Internal Medicine
DX: E83.52 Hypercalcemia (principal)
CPT/HCPCS: 36415; 80048; 82330; 83735

== ENCOUNTER → 2023-09-03 | Day surgery (SDC) | payer MEDICARE, SELFPAY ==
--- OUTSIDE RECORDS SUMMARY | 2023-09-03 07:56 | XMS RPT_ITS | CCD ---
Author Name Unknown Address [address] [place] [address] Organization [facility] Care Team Providers Care Installation Tech Name Role Phone CHELSI BURTON Primary Care Unavailable MAYI PINTO Attending Unavaila LINH Babcock Admitting Unavailable MAYI PINTO Referring Unavaila DOUGLAS Dasilva Consulting Unavailab DEMETRIS Lucas Attending Unavailable CHELSI BURTON Primary Care Unavailable Allergies Allergy Classification Reported Allergen(s) Allergy Type Date of Onset Reaction(s) Facility (2 sources) Adhesive Tape; Translations: [ADHESIVE TAPE (ROSINS)] Propensity to adverse reactions (disorder) 5 [facility] Repository (2 sources) Codeine; Translations: [CODEINE] Drug Allergy 5 [facility] Repository (2 sources) Erythromycin; Translations: [ERYTHROMYCIN] Drug Allergy 7 [facility] Repository (2 sources) Niacin; Translations: [NIACIN] Drug Allergy 1 [facility] Repository Problems Problem Classification Problem Date Documented [...] Facility Start: 08-26-2022 End: 08-28-2022 ambulatory [facility] Facility:[facility] ital Start: 08-26-2022 End: 08-26-2022 Emergency department patient visit CHELSI BURTON Facility:[facility] Payers Date Payer Category Payer Unknown [id number] Plan of care note 08-27-2022 Note Date & Type Note Facility 08-27-2022 Note HNO ID: [id number] Author: Robin Ayala MD Service: Hospital Medicine Author Type: Physician Type: Plan of Care Filed: 08/27/2022 9:57 PM Note Text: RN page regarding patient wanting to have a BM. Lactulose and senna docusate Rx'ed. [facility] Progress note 08-27-2022 Note Date & Type Note Facility 08-27-2022 Note HNO ID: [id number] Author: Demetris Rothman MD Service: Hospital Medicine Author Type: Physician Type: Progress Notes Filed: 08/27/2022 3:39 PM Note Text: DEPARTMENT OF HOSPITAL MEDICINE PROGRESS NOTE SERVICE DATE: 08/27/2022 SERVICE TIME: 3:34 PM Hospital Medicine/Primary Attending: Demetris Rothman MD NIGHT AND WEEKEND COVERAGE: [employer] COVERAGE: Days: [phone], please page attending physician. Nights: [phone], please page [facility] p[facility] [phone]. Subjective INTERVAL HPI: Patient seen and evaluated [...] 720 hours. No results for input(s): SFTYPE, [id number], SFWBC, SFNEUT, SFLYMP, SFMONO, URSEI, CPSEI in the last 720 hours. Vitamin B12 1618 06/18/2006 Folate >18.0 11 (more content not included)... [facility] Progress note 08-26-2022 Note Date & Type Note Facility 08-26-2022 Note HNO ID: [id number] Author: Demetris Rothman MD Service: Hospital Medicine Author Type: Physician Type: Progress Notes Filed: 08/26/2022 4:30 PM Note Text: DEPARTMENT OF HOSPITAL MEDICINE PROGRESS NOTE SERVICE DATE: 08/26/2022 SERVICE TIME: 4:25 PM Hospital Medicine/Primary Attending: Demetris Rothman MD NIGHT AND WEEKEND COVERAGE: [employer] COVER[employer]: Days: [phone], please page attending physician. Nights: [phone], please page [facility]ist Night coverage pager [phone]. Subjective INTERVAL HPI: Patient seen and evaluated [...] 720 hours. No results for input(s): SFTYPE, [id number], SFWBC, SFNEUT, SFLYMP, SFMONO, URSEI, CPSEI in the last 720 hours. Vitamin B12 1618 06/18/2006 Folate >18.0 06/18/2006 Vitamin D 25 Hydroxy 32.5 10/08/2020 ABNORMAL MICROBIOLOGY Positive Micro-30 Days No results found for the last 720 hours. No results found for: BLSP, BLCUL Invalid input(s): AGSTREPT Assessment/Plan Problem List Other chest pa (more content not included)... [facility] Progress note 08-21-2021 Note Date & Type Note Facility 08-21-2021 Note HNO ID: [id number] Author: Colleen Ace MA Service: ? Author Type: Patient Office Rep Type: Progress Notes Filed: 08/21/2021 3:04 PM [...] Ace MA August 21, 2021 3:01 PM [facility] Progress note 08-19-2021 Note Date & Type Note Facility 08-19-2021 Note HNO ID: [id number] Author: Colleen Ace MA Service: ? Author Type: Patient Office Rep Type: Progress Notes Filed: 08/19/2021 4:22 PM Note Text: POPULATION HEALTH NAVIGATION OUTREACH Action/FYI PCP OFF BOARDING OUTREACH Attempt # 1 LMOVM No Mychart. Encounter closed. Pt identified by name and : NO Outreach Outcome/Action Unable to reach patient: Left message Reason for Outreach Attribution: Provider Off-boarding Payer: Payor: O MEDICARE / Plan: [employer] HMO / Product Type: HMO / Care Gap Reviewed:: Annual Wellness visit Flu vaccine Reminder: Reminder note to check Health Maintenance for items below Health Maintenance items due: DTAP,TDAP,TD(2 - Tdap) due on 11/04/2015 COVID-19 VACCINE(3 - Booster for Pfizer series) due on 03/25/2021 INFLUENZA(1) due on 03/26/2021 Message Sent to Practice: NO Navigation Signature: Colleen Ace MA August 19, 2021 4:20 PM [facility] Clinical Note 08-18-2021 Note Date & Type Note Facility 08-18-2021 Note Patient Outreach (NE TNAV) ARLENE MCMANUS ([id number]) 1945 F Date Time Provider Department 08/18/21 [...] Off-boarding Payer: Payor: O MEDICARE / Plan: [facility] [place] / Product Type: HMO / Care [...] myalgia Date Reviewed: 10/28/2020 Reviewed by: Fatoumata ([facility]) ROBIN Lucio - Fully Assessed Reason [...] Encounter Status:Closed by COLLEEN ACE on 08/19/21 [facility] Progress note 11-05-2020 Note Date & Type Note Facility 11-05-2020 Note HNO ID: [id number] Author: Torie (Rt) RT Danie(R) Service: ? Author Type: Solution Coordinator Type: Progress Notes Filed: 11/05/2020 9:06 AM [...] RT Dinorah November 05, 2020 9:06 AM [facility] Progress note 10-28-2020 Note Date & Type Note Facility 10-28-2020 Note HNO ID: [id number] Author: Eros Horta III Service: ? Author [...] Laterality Date - COLONOSCOP W/ OR W/O [facility] SPE[facility] 05-08-02 Colonoscopy-repeat in - COLONOSCOP W/ OR W/O [facility] SPE[facility] 02/28/2013 Colonoscopy - CORRECT BUNION,SIMPLE [...] joint pain, or (more content not included)... [facility] Clinical Note 09-17-2020 Note Date & Type Note Facility 09-17-2020 Note Patient Outreach ([place] VAMN) ARLENE MCMANUS ([id number]) 1945 F Date Time Provider Department 09/17/20 [...] Fully Assessed Order(s):SARS-COVID VACCINE 1ST DOSE APPT [[id number]] Order #: [id number] FUTURE Prescriptions as of 09/17/2020 Sig: ALENDRONATE [...] 11/29/2014 Letter Text Encounter Status:Closed by CHAPO TamagoUSER on 09/20/20 [facility] Summary Purpose Family History No Family History Records FoundNo Family History Records FoundNo Family History Records FoundNo Family History Records Found Advance Directives No Advanced Directives Records FoundNo Advanced Directives Records FoundNo Advanced Directives Records FoundNo Advanced Directives Records Found Additional Source Comments INFORMATION SOURCE (unrecogn ized section and content) DATE CREATED AUTHOR AUTHOR'S ORGANIZ ATION 08/30/2021 [facility] DATE CREATED AUTHOR AUTHOR'S ORGANIZ ATION 08/27/2022 [facility] DATE CREATED AUTHOR AUTHOR'S ORGANIZ ATION 09/01/2022 [facility] FOR RECORDS PERTAINING TO PATIENTS WHO ARE [...] BE BASED ON THE PRIMARY CLINICAL RECORDS. [employer] [facility]. provides no warranty or guarantee of the accuracy or completeness of information in this document.
[2023-09-03 08:05] VITALS: BP 176/74; PULSE 73; RESP 16; TEMP 36.8; O2SAT 100
[2023-09-03] MEDS: Lidocaine Jelly 2% 20 ML Syringe (URO-JET) 1 APPLIC (08:05)
== END | disposition home or self-care (01) ==
LOC: EN 07:47
PROVIDERS: PCP Internal Medicine; Referring Provider Internal Medicine; Visit Provider Surgery
PROC: F00ZJWZ Instrumental Swallowing and Oral Function Assessment using Swallowing Equipment (ICD-10-PCS; CPT 43235; principal; 2023-09-03 07:55)
DX: K21.9 Gastro-esophageal reflux disease without esophagitis (principal)
CPT/HCPCS: 91010

== ENCOUNTER → 2023-09-20 | Outpatient (CLI) | payer MEDICARE, SELFPAY ==
--- NOTE | 2023-09-20 12:42 | BI_ITS ---
MAMMOGRAPHY - BILATERAL SCREENING REASON FOR EXAM: Female, 78 years old. Routine annual screening examination. PERTINENT HISTORY: Non-contributory. TECHNIQUE: Digital bilateral breast dutch (3D mammographic acquisition) in the CC and MLO projections. 2-D mediolateral oblique (MLO) and craniocaudad (CC) views of both breasts were obtained. CAD: Full Field Digital Mammography with Computer Added Detection was performed. COMPARISON: Comparison is made with prior study June 01, 2022. FINDINGS: Breast Composition: There are scattered areas of fibroglandular density. There are no dominant masses or suspicious calcifications. No other significant abnormalities are identified. There has been no significant change since the prior study. BI/SCRN MAMM (CAD)W/DUTCH BILAT IMPRESSION: Stable bilateral screening mammogram. Yearly follow-up mammogram recommended. (A) ASSESSMENT CATEGORY: BIRADS Category 1: Negative. A letter regarding these results will be sent to the patient by the facility within 30 days. Approximately 10% of breast cancers are not detected by mammography. A normal mammogram should not delay biopsy of a clinically suspicious abnormality. [id number] Electronically Signed: Garry Ghosh MD at 18:58 EST ,
== END | disposition home or self-care (01) ==
LOC: OPBI 12:41
PROVIDERS: PCP Internal Medicine; Referring Provider Internal Medicine; Visit Provider Internal Medicine
DX: Z12.31 Encounter for screening mammogram for malignant neoplasm of breast (principal)
CPT/HCPCS: 77063; 77067

== ENCOUNTER → 2024-01-05 | Outpatient (CLI) | payer MEDICARE, SELFPAY ==
[2024-01-05 13:09] LABS: Absolute Lymphocyte Count 1.19 X10^3/uL (0.83-4.51); Absolute Neutrophil Count 4.7 X10^3/uL (2.0-7.7); Basophil# 0.04 X10^3/uL; Basophil% 0.6 % (0-1); Eosinophil# 0.03 X10^3/uL; Eosinophils% 0.5 % (0-5); Hematocrit 38.7 % (37-47); Hemoglobin 12.6 g/dL (12.0-15.0); Lymphocyte # 1.19 X10^3/ul (0.83-4.51); Lymphocyte % 18.4 % (19-41); Mean Corp Hgb Conc 32.6 g/dL (32-36); Mean Corpuscular Hgb 29.4 pg (27.0-32.0); Mean Corpuscular Volume 90.2 fL (81-99); Mean Platelet Vol. 8.9 fl (6.2-12.0); Monocyte# 0.45 X10^3/uL; NRBC Flagged by Analyzer 0 % (0-5); Neutrophil # 4.65 X10^3/uL (2.7-7.7); Neutrophil % 71.8 % (47-70); Platelet Count 308 K/mm3 (150-450); RBC Distribution Width CV 13.2 % (11.6-14.6); RBC Distribution Width SD 43.1 fl (35.1-43.9); Red Blood Count 4.29 M/mm3 (4.2-5.4); White Blood Count 6.5 K/mm3 (4.4-11.0)
[2024-01-05 13:42] LABS: Vitamin D,25 Hydroxy 44.1 ng/mL
[2024-01-05 14:10] LABS: ALB/GLOB Ratio 1.1 RATIO (0.9-2.4); AST(SGOT) 33 U/L (15-37); Alanine Aminotransfer ALT/SGPT 35 U/L (13-56); Albumin, Serum 3.6 g/dL (3.2-5.0); Alkaline Phosphatase 53 U/L (45-117); Anion Gap 4 (5-15); BUN 15 mg/dL (7-18); BUN/Creat Ratio 10.7 RATIO (10-20); Calcium,Total 9.9 mg/dL (8.5-10.1); Chloride 100 mmol/L (98-107); Cholesterol 155 mg/dL (200); EST Glomerular Filtration Rate 39 mL/min (>60); Est Glom Filt Rate - Afr Amer 47 mL/min (>60); Globulin 3.4 g/dL (2.2-4.2); Glucose 129 mg/dL (74-106); High Density Lipoprotein 102 mg/dL; Magnesium 1.9 mg/dL (1.6-2.6); Sodium Level 134 mmol/L (136-145); Thyroid Stim Hormone (TSH) 0.74 uIU/mL (0.358-3.74); Triglycerides 52 mg/dL; Very Low Density Lipoprotein 10 mg/dL (5-40)
== END | disposition home or self-care (01) ==
LOC: LAB 12:46
PROVIDERS: PCP Internal Medicine; Referring Provider Internal Medicine; Visit Provider Internal Medicine
DX: Z13.220 Encounter for screening for lipoid disorders (principal); E78.00 Pure hypercholesterolemia, unspecified; I10 Essential (primary) hypertension; E55.9 Vitamin D deficiency, unspecified; Z87.19 Personal history of other diseases of the digestive system
CPT/HCPCS: 36415; 80053; 80061; 82306; 83735; 84443; 85025

== ENCOUNTER → 2024-01-31 | Outpatient (CLI) | payer MEDICARE, SELFPAY ==
--- NOTE | 2024-01-31 13:29 | CT_ITS ---
STUDY: CT MAXILLOFACIAL SINUSES REASON FOR EXAM: Female, 78 years old. Sinus pain and pressure RADIATION DOSAGE (If Supplied By Facility): CTDIvol = ( 33.06 ) mGy, DLP = ( 1411.51 ) mGycm TECHNIQUE: The patient was scanned in a multi detector CT scanner. High resolution axial imaging was performed without the administration of intravenous contrast material. Sagittal and coronal images were reconstructed. Individualized dose optimization techniques were used for this CT. COMPARISON: None. FINDINGS: FRONTAL SINUSES: Normal aeration, without mucosal inflammatory disease. ETHMOIDAL SINUSES: Normal aeration, without mucosal inflammatory disease. MAXILLARY SINUSES: Normal aeration, without mucosal inflammatory disease. SPHENOIDAL SINUSES: Normal aeration, without mucosal inflammatory disease. There is patency of the bilateral maxillary infundibuli with normal uncinate processes, ethmoid bullae, and hiatus semilunaris. Normal bilateral middle turbinates. Normal bilateral inferior turbinates. Normal midline nasal septum. There is patency of the bilateral nasal airways. The visualized osseous structures are normal. The visualized bilateral orbital contents are normal. CT/Sinus/Facial Bone IMPRESSION: Normal CT examination of the maxillofacial sinuses. Electronically Signed: Garry Ghosh MD at 15:17 EDT ,
== END | disposition home or self-care (01) ==
LOC: CT 13:27
PROVIDERS: PCP Internal Medicine; Referring Provider Internal Medicine; Visit Provider Internal Medicine
DX: J01.90 Acute sinusitis, unspecified (principal)
CPT/HCPCS: 70486

== ENCOUNTER → 2024-05-11 | Outpatient (CLI) | payer MEDICARE, SELFPAY ==
[2024-05-11 13:44] LABS: Anion Gap 4 (5-15); BUN 14 mg/dL (7-18); BUN/Creat Ratio 12.5 RATIO (10-20); Calcium,Total 10.1 mg/dL (8.5-10.1); Chloride 98 mmol/L (98-107); Creatinine, Serum 1.12 mg/dL (0.55-1.02); EST Glomerular Filtration Rate 50 mL/min (>60); Est Glom Filt Rate - Afr Amer 60 mL/min (>60); Glucose 96 mg/dL (74-106); Magnesium 2.3 mg/dL (1.6-2.6); Potassium 4.4 mmol/L (3.5-5.1); Sodium Level 130 mmol/L (136-145)
== END | disposition home or self-care (01) ==
LOC: LAB 12:05
PROVIDERS: PCP Internal Medicine; Referring Provider Internal Medicine; Visit Provider Internal Medicine
DX: I10 Essential (primary) hypertension (principal); E78.00 Pure hypercholesterolemia, unspecified
CPT/HCPCS: 36415; 80048; 83735

== ENCOUNTER → 2024-07-12 | Outpatient (CLI) | payer MEDICARE, SELFPAY ==
--- NOTE | 2024-07-12 12:37 | RAD_ITS ---
STUDY: X-RAY - CERVICAL SPINE REASON FOR EXAM: Female, 79 years old. Upper/lower ext tingling, head pressure TECHNIQUE: 3 view(s) of the cervical spine were obtained. COMPARISON: None FINDINGS: Normal anterior atlantoaxial articulation. Normal odontoid process. Exaggerated cervical lordosis. Normal vertebral bodies. Minimal spurring at the endplates. Normal disc space heights. The soft tissue structures are unremarkable. RAD/Cerv Spine 2 or 3 Views IMPRESSION: Minimal degenerative changes of the visualized cervical spine. Electronically Signed: Red Dowell DO at 16:13 [facility] Reading Location ID and State: [facility] / [place] Tel [phone], Service support ,
== END | disposition home or self-care (01) ==
LOC: MTRAD 12:37
PROVIDERS: PCP Internal Medicine; Referring Provider Internal Medicine; Visit Provider Internal Medicine
DX: M48.02 Spinal stenosis, cervical region (principal)
CPT/HCPCS: 72040

== ENCOUNTER → 2024-08-17 | Outpatient (CLI) | payer MEDICARE, SELFPAY ==
--- NOTE | 2024-08-17 12:23 | MRI_ITS ---
HISTORY: Spinal stenosis, best possible, patient kyphotic and unable to repeat. TECHNIQUE: Multiplanar and multisequence MR images of the cervical spine were obtained without contrast. 255 images. COMPARISON: XR 07/12/2024. FINDINGS: VERTEBRAE: Vertebral body heights maintained. Mild degenerative endplate changes. No significant bone marrow signal abnormality. VERTEBRAL ALIGNMENT: Chronic 2 mm retrolisthesis of C3-4. Chronic exaggeration of the cervical lordosis and thoracic kyphosis. SPINAL CORD: Cervical cord signal and morphology within normal limits. SOFT TISSUES: No prevertebral fluid collection. INTERVERTEBRAL DISCS: C2-3, C3-4, C4-5: No significant posterior disc protrusion or central canal stenosis. Uncovertebral and facet arthropathy without significant foraminal narrowing. C5-6: Minimal disc bulge with uncovertebral and facet arthropathy. No significant central canal stenosis or foraminal narrowing. C6-7, C7-T1: No significant posterior disc protrusion, central canal stenosis, or foraminal narrowing. MRI/Spine Cervical (Routine) IMPRESSION: Very mild degenerative change of the cervical spine without significant spinal canal stenosis or high-grade foraminal narrowing. Chronic exaggeration of the cervical lordosis. Electronically Signed: Cheyenne Oconnor MD at 13:57 EST ,
== END | disposition home or self-care (01) ==
LOC: MRI 12:17
PROVIDERS: PCP Internal Medicine; Referring Provider Internal Medicine; Visit Provider Internal Medicine
DX: M40.50 Lordosis, unspecified, site unspecified (principal); R51.9 Headache, unspecified; R20.0 Anesthesia of skin; R20.2 Paresthesia of skin
CPT/HCPCS: 72141

== ENCOUNTER → 2025-01-15 | Outpatient (CLI) | payer MEDICARE, SELFPAY ==
[2025-01-15 12:04] LABS: Absolute Neutrophil Count 4.4 X10^3/uL (2.0-7.7); Basophil# 0.04 X10^3/uL; Basophil% 0.6 % (0-1); Eosinophil# 0.05 X10^3/uL; Eosinophils% 0.7 % (0-5); Hematocrit 39.2 % (37-47); Lymphocyte % 23.6 % (19-41); Mean Corp Hgb Conc 33.2 g/dL (32-36); Mean Corpuscular Volume 90.5 fL (81-99); Mean Platelet Vol. 9.2 fl (6.2-12.0); Monocyte# 0.55 X10^3/uL; Monocyte% 8.1 % (0-10); NRBC Flagged by Analyzer 0 % (0-5); Neutrophil # 4.42 X10^3/uL (2.7-7.7); Neutrophil % 65.4 % (47-70); Platelet Count 320 K/mm3 (150-450); RBC Distribution Width CV 13.2 % (11.6-14.6); RBC Distribution Width SD 43.9 fl (35.1-43.9); Red Blood Count 4.33 M/mm3 (4.2-5.4); White Blood Count 6.8 K/mm3 (4.4-11.0)
[2025-01-15 12:31] LABS: Hemoglobin A1c 5.7 % (<=5.6)
[2025-01-15 13:26] LABS: ALB/GLOB Ratio 1.5 RATIO (0.9-2.4); AST(SGOT) 24 U/L (<=31); Alanine Aminotransfer ALT/SGPT 19 U/L (<=34); Albumin, Serum 4.4 g/dL (3.4-4.8); Alkaline Phosphatase 55 U/L (35-104); Anion Gap 10 (5-15); BUN 21 mg/dL (4-19); BUN/Creat Ratio 15.6 RATIO (10-20); Calcium,Total 9.8 mg/dL (7.6-11.0); Carbon Dioxide 25.8 mmol/L (21.0-32.0); Chloride 101 mmol/L (98-108); Cholesterol 176 mg/dL (<=200); Creatinine, Serum 1.35 mg/dL (0.70-1.20); EST Glomerular Filtration Rate 40 (>60); Glucose 100 mg/dL (70-99); High Density Lipoprotein 91 mg/dL; Low Density Lipoprotein Calc. 69 mg/dL; Potassium 5.6 mmol/L (3.3-5.1); Protein, Total 7.4 g/dL (5.9-8.4); Sodium Level 136 mmol/L (133-145); Total Bilirubin 0.52 mg/dL (0.00-1.30); Triglycerides 81 mg/dL; Very Low Density Lipoprotein 16 mg/dL (5-40); cholesterol:hdl ratio screen 1.93
[2025-01-15 13:30] LABS: Vitamin D,25 Hydroxy 53.8 ng/mL (30-100)
== END | disposition home or self-care (01) ==
LOC: LAB 11:33
PROVIDERS: PCP Internal Medicine; Referring Provider Internal Medicine; Visit Provider Internal Medicine
DX: I12.9 Hypertensive chronic kidney disease with stage 1 through stage 4 chronic kidney disease, or unspecified chronic kidney disease (principal); E55.9 Vitamin D deficiency, unspecified; E78.00 Pure hypercholesterolemia, unspecified; N18.9 Chronic kidney disease, unspecified; K21.9 Gastro-esophageal reflux disease without esophagitis; R73.9 Hyperglycemia, unspecified; Z13.220 Encounter for screening for lipoid disorders
CPT/HCPCS: 36415; 80053; 80061; 82306; 83036; 84443; 85025

== ENCOUNTER → 2025-01-31 | Outpatient (CLI) | payer MEDICARE, SELFPAY ==
[2025-01-31 12:43] LABS: Anion Gap 10 (5-15); BUN 18 mg/dL (4-19); BUN/Creat Ratio 13.3 RATIO (10-20); Calcium,Total 9.6 mg/dL (7.6-11.0); Carbon Dioxide 25.2 mmol/L (21.0-32.0); Chloride 100 mmol/L (98-108); Glucose 90 mg/dL (70-99); Potassium 4.5 mmol/L (3.3-5.1)
== END | disposition home or self-care (01) ==
LOC: LAB 11:31
PROVIDERS: PCP Internal Medicine; Referring Provider Internal Medicine; Visit Provider Internal Medicine
DX: E78.5 Hyperlipidemia, unspecified (principal); N18.9 Chronic kidney disease, unspecified
CPT/HCPCS: 36415; 80048

== ENCOUNTER → 2025-07-02 | Outpatient (CLI) | payer MEDICARE, SELFPAY ==
[2025-07-02 10:36] LABS: Hematocrit 40.6 % (37-47); Hemoglobin 13.6 g/dL (12.0-15.0); Immature Granulocytes Count 0.020 X10^3/uL (0.0-0.0); Mean Corp Hgb Conc 33.5 g/dL (32-36); Mean Corpuscular Volume 90.2 fL (81-99); Mean Platelet Vol. 8.8 fl (6.2-12.0); NRBC Flagged by Analyzer 0 % (0-5); Platelet Count 312 K/mm3 (150-450); RBC Distribution Width CV 12.9 % (11.6-14.6); RBC Distribution Width SD 43.1 fl (35.1-43.9); Red Blood Count 4.50 M/mm3 (4.2-5.4); White Blood Count 5.8 K/mm3 (4.4-11.0)
[2025-07-02 11:37] LABS: AST(SGOT) 24 U/L (<=31); Alanine Aminotransfer ALT/SGPT 16 U/L (<=34); Albumin, Serum 4.5 g/dL (3.4-4.8); Alkaline Phosphatase 51 U/L (35-104); Anion Gap 10 (5-15); BUN 14 mg/dL (4-19); BUN/Creat Ratio 11.0 RATIO (10-20); Calcium,Total 10.0 mg/dL (7.6-11.0); Carbon Dioxide 26.0 mmol/L (21.0-32.0); Chloride 104 mmol/L (98-108); Cholesterol 200 mg/dL (<=200); Globulin 2.9 g/dL (2.2-4.2); Glucose 103 mg/dL (70-99); Low Density Lipoprotein Calc. 85 mg/dL; Magnesium 2.2 mg/dL (1.5-2.2); Potassium 4.7 mmol/L (3.3-5.1); Triglycerides 59 mg/dL; Very Low Density Lipoprotein 12 mg/dL (5-40); Vitamin D,25 Hydroxy 53.1 ng/mL (30-100); cholesterol:hdl ratio screen 1.92
== END | disposition home or self-care (01) ==
LOC: LAB 10:14
PROVIDERS: PCP Internal Medicine; Referring Provider Internal Medicine; Visit Provider Internal Medicine
DX: I12.9 Hypertensive chronic kidney disease with stage 1 through stage 4 chronic kidney disease, or unspecified chronic kidney disease (principal); N18.9 Chronic kidney disease, unspecified; E55.9 Vitamin D deficiency, unspecified; E78.00 Pure hypercholesterolemia, unspecified; Z13.220 Encounter for screening for lipoid disorders
CPT/HCPCS: 36415; 80053; 80061; 82306; 83735; 84443; 85025